=== PATIENT | female | born 1980 | race Caucasian/White ===

== ENCOUNTER 2017-01-27 13:35 | Emergency (ER) | payer MEDICARE, MEDICAID ==
[~2017-01-27] VITALS: Ht 149.9 cm; Wt 64.4 kg
--- OUTSIDE RECORDS SUMMARY | 2017-01-27 13:42 | XMS REPORT | Referral Summary ---
Author Author [facility] Organization [facility] Address Unknown Phone Unavailable Care Team Providers Care Aquaculturist Name Role Phone PROVIDER, NOTINSYSTEM PCP Unavailable Encounter [facility] [id number] Date(s): 09/06/15 - 09/06/15 [facility] [address] [place], [place] [address] Discharge Diagnosis: H/O myositis Discharge Diagnosis: History of gout Discharge Diagnosis: Rheumatoid arthritis Discharge Diagnosis: Fibromyalgia Discharge Diagnosis: History of scleroderma Discharge Disposition: -Home or Self Care Attending Physician: Milady Phillip MD Admitting Physician: Milady Phillip MD Vital Signs Most recent to 1 oldest [Reference Range]: Temperature Oral 36.5 degC [35.8-37.3 degC] (09/06/15 8:41 AM) Peripheral Pulse 63 bpm Rate [60-100 bpm] (09/06/15 8:41 AM) Respiratory Rate 16 br/min [14-20 br/min] (09/06/15 8:41 AM) Blood Pressure 117/73 mmHg [90-140/60-90 mmHg] (09/06/15 8:41 AM) Problem List Condition Effective Dates Status Health Status Informant Anxiety(Confirmed) Active Asthma(Confirmed) Active Fibromyalgia(Confirm Active ed) History of Active scleroderma(Confirme d) History of Active rheumatoid arthritis(Confirmed) Migraine(Confirmed) Active Rheumatoid Active arthritis(Confirmed) Spinal Active stenosis(Confirmed) Lupus(Confirmed) Active Allergies, Adverse Reactions, Alerts Substance Reaction Severity Status penicillin Active Phenergan Active sulfa drugs Active Medications albuterol 90 mcg/inh inhalation powder puffs, Inhalation, q4hr, 0 Refill(s) Start Date: 09/06/15 Status: Ordered hydrOXYzine hydrochloride 25 mg oral tablet 25 mg 1 tabs, Oral, Daily, # 30 tabs, 0 Refill(s) Start Date: 09/06/15 Status: Ordered PROzac 20 mg oral capsule 20 mg 1 caps, Oral, Daily, # 30 caps, 0 Refill(s) Start Date: 09/06/15 Status: Ordered SUMAtriptan Once, 0 Refill(s) Start Date: 09/06/15 Status: Ordered traMADol 50 mg oral tablet 50 mg 1 tabs, Oral, Daily, MAY TAKE UP TO 4/DAY, 0 Refill(s) Start Date: 09/06/15 Status: Ordered Results No data available for this section Immunizations No data available for this section Procedures Procedure Date Related Diagnosis Body Site Carpal tunnel1 Cholecystectomy2 Hernia repair3 Tonsillectomy4 Tubal ligation5 [id number] [id number] Social History Social History Type Response Smoking Status Former smoker; Type: Cigarettes; Tobacco use per day: More than 1 pack; Number of years: 20 Assessment and Plan Extracted from: Title: Office Visit Note Author: Milady Phillip MD Date: 09/06/15 Assessment/Plan 1.History of scleroderma, H/O myositis, History of gout Ordered: Office Visit Level 5 New 82346 2.Rheumatoid arthritis Ordered: Office Visit Level 5 New 09928 5.Fibromyalgia Ordered: Office Visit Level 5 New 22912
[2017-01-27] MEDS ORDERED: DEXAMETHASONE 10 MG/ML (DECADRON) 1 ML VIAL ONE (14:09)
[2017-01-27] MEDS ORDERED: FEXO1TAB40 PO (14:10)
[2017-01-27] MEDS ORDERED: CEFD300C3 PO (14:10)
--- NOTE | 2017-01-27 14:10 | ED EENT ---
History of Present Illness General Chief Complaint: Cough/Cold/Flu Symptoms Stated Complaint: COUGH/CONGESTION/FEVER/BODY ACHE/COLD Nursing Triage Note: c/o cough since last night Source: patient Exam Limitations: no limitations History of Present Illness Time seen by provider: 14:07 Initial Comments To ER with reports of a productive cough since last night associated with nasal congestion, purulent nasal discharge from the right nostril. Chills without fever. Sore throat. Timing/Duration: gradual Severity: moderate Location: nose Associated Symptoms: cough, sinus infection, sore throat Allergies and Home Medications Allergies Coded Allergies: Penicillins (Verified Allergy, Unknown, 01/27/17) Sulfa (Sulfonamide Antibiotics) (Verified Allergy, Unknown, 01/27/17) Review of Systems Constitutional: see HPI Eyes: No Symptoms Reported Ears: See HPI, Pain Nose: see HPI, pain Mouth: no symptoms reported Throat: no symptoms reported Respiratory: no symptoms reported Cardiovascular: no symptoms reported Musculoskeletal: no symptoms reported Skin: no symptoms reported Neurological: No Symptoms Reported Hematologic/Lymphatic: No Symptoms Reported Immunological/Allergic: no symptoms reported Past Tkqcqoo-Hnvxnv-Ybpthr Hx Patient Social History Alcohol Use: Occasionally Uses Recreational Drug Use: No Smoking Status: Current Everyday Smoker Type Used: Cigarettes Recent Foreign Travel: No Contact w/Someone Who Travel: No Recent Infectious Disease Expo: No Surgeries History of Surgeries: Yes (hernia, dental, esophagial, port, d&c) Surgeries: Adenoidectomy, Ear Surgery, Gallbladder, Tonsillectomy Respiratory Respiratory Disorders: Asthma Cardiovascular History of Cardiac Disorders: Yes Cardiac Disorders: Heart Murmur Neurological History of Neurological Disord: No Genitourinary History of Genitourinary Disor: No Gastrointestinal History of Gastrointestinal Di: No Musculoskeletal History of Musculoskeletal Dis: Yes Musculoskeletal Disorders: Rheumatoid Arthritis Endocrine History of Endocrine Disorders: No HEENT History of HEENT Disorders: No Cancer History of Cancer: No Psychosocial History of Psychiatric Problem: No Integumentary History of Skin or Integumenta: No Blood Transfusions History of Blood Disorders: No Physical Exam Vital Signs Vital Sign - Last 12Hours 01/27/17 13:53 Temp 98.5 Pulse 80 Resp 18 B/P (MAP) 145/89 Pulse Ox 100 General Appearance: WD/WN, no apparent distress Eyes: bilateral eye normal inspection, bilateral eye PERRL, bilateral eye EOMI Ears: bilateral ear auricle normal, bilateral ear canal normal, bilateral ear TM normal Mouth/Throat: normal mouth inspection, pharynx normal, other (bilateral maxillary sinus tenderness to palpation right greater than left) Neck: non-tender, full range of motion Respiratory: no respiratory distress, no accessory muscle use Gastrointestinal: normal bowel sounds, non tender, soft Neurologic/Psychiatric: alert, normal mood/affect, oriented x 3 Skin: normal color, warm/dry Progress/Results/Core Measures Results/Orders My Orders Orders - LALO COOPER APRN Dexamethasone Pf Injection (Decadron Pf (01/27/17 14:15) Vital Signs/I&O Vital Sign - Last 12Hours 01/27/17 13:53 Temp 98.5 Pulse 80 Resp 18 B/P (MAP) 145/89 Pulse Ox 100 Blood Pressure Mean: 107 Departure Impression Impression: Primary Impression: Sinusitis Disposition: 01 HOME, SELF-CARE Condition: Stable Departure-Patient Inst. Decision time for Depature: 14:09 Referrals: NO,LOCAL PHYSICIAN (PCP/Family) Primary Care Physician Patient Instructions: Sinusitis, Adult (DC) Add. Discharge Instructions: 1. Medication as directed 2. Return to ER for any concerns 3. See her doctor later this week for recheck All discharge instructions reviewed with patient and/or family. Voiced understanding. Scripts Fexofenadine/Pseudoephedrine (Viri-D 12 Hour Tablet) 1 Each Tab.er.12h 1 EACH PO BID Y for CONGESTION, #14 TAB Prov: LALO COOPER APRN 01/27/17 Cefdinir (Cefdinir) 300 Mg Capsule 300 MG PO BID, #14 CAP Prov: LALO COOPER APRN 01/27/17 LALO COOPER APRN Jan 27, 2017 14:10
[2017-01-27] MEDS ORDERED: DEXAMETHASONE PF 10 MG/ML (DECADRON) VIAL IM ONE (14:15)
[2017-01-27 14:18] VITALS: BP 145/89
== END 2017-01-27 14:18 | disposition home or self-care (01) ==
LOC: ER 13:39
DX: J32.9 Chronic sinusitis, unspecified (principal); J45.909 Unspecified asthma, uncomplicated; M06.9 Rheumatoid arthritis, unspecified; F17.210 Nicotine dependence, cigarettes, uncomplicated; Z87.19 Personal history of other diseases of the digestive system; Z90.89 Acquired absence of other organs
CPT/HCPCS: 96372; 99284

== ENCOUNTER 2017-03-14 14:54 | Emergency (ER) | payer OTHER, MEDICARE, MEDICAID ==
[~2017-03-14] VITALS: Ht 149.9 cm; Wt 63.5 kg
[~2017-03-14 14:54] MED LIST: CEFD300C3 PO; FEXO1TAB40 PO
--- OUTSIDE RECORDS SUMMARY | 2017-03-14 14:59 | XMS REPORT ---
Author Author ROLAND AN Organization [facility] Address [address] [address] Care Team Providers Care Internet Project Manager Name Role Phone ROLAND AN Unavailable PROBLEMS Type Condition ICD9-CM Code SSP36-JK Code Onset Dates Condition Status SNOMED Code Problem examination or test, unconfirmed V72.40 Active 262123866 Problem Hypothyroidism, unspecified type E03.9 Active 07201937 Problem Barretts esophagus without dysplasia K22.70 Active 323840451 Problem Chronic GERD K21.9 Active 705678224 Problem Cardiac arrhythmia, unspecified cardiac arrhythmia type I49.9 Active 783026105 Problem Anxiety about health F41.8 Active 445380870 Problem Intractable migraine without status migrainosus, unspecified migraine type G43.919 Active 182896933 Problem Anxiety F41.9 Active 59045637 Problem History of autoimmune disease Z86.2 Active 052578476 ALLERGIES Substance Reaction Event Type Date Status Latex itching Drug Allergy Jun, Active Sulfur nausea Drug Allergy Jun, Active Phenergan anaphylaxis Drug Allergy Jun, Active Penicillin V Potassium itching Drug Allergy Jun, Active SOCIAL HISTORY Never Assessed PLAN OF CARE Activity Details Follow Up prn Reason: VITAL SIGNS Height 64 in 2016-07-03 Weight 159.4 lbs 2016-07-03 Temperature 99.7 degrees Fahrenheit 2016-07-03 Respiratory Rate 16 2016-07-03 BMI 27.36 kg/m2 2016-07-03 Blood pressure systolic 120 mmHg 2016-07-03 Blood pressure diastolic 82 mmHg 2016-07-03 MEDICATIONS Medication Instructions Dosage Frequency Start Date End Date Duration Status Omeprazole 40 mg Orally Once a day 1 capsule 24h May, 30 day(s ) Active Cipro 500 MG Orally Twice a day 1 tablet 12h Jun, Jun, 07 days Active Levothyroxine Sodium 25 MCG Orally Once a day 1 tablet on an empty stomach in the morning 24h Active Tramadol HCl 50 MG Orally every 6 hrs 1 tablet as needed 6h Active RESULTS No Results PROCEDURES Procedure Date Ordered Result Body Site [facility] VISIT NEW PATIENT Jul 03, 2016 IMMUNIZATIONS No Known Immunizations MEDICAL (GENERAL) HISTORY Type Description Date Medical History polymyositis Medical History sclerdermal Medical History arthritis Medical History fibromylagia Medical History gerd Medical History mytrovalve prolapse Medical History heart murmar Medical History parcurtius Medical History anxiety Surgical History tonsils Surgical History tubes in ears Surgical History [place] cath Surgical History hernia repair Surgical History EGD Surgical History uterine ablation Surgical History dilatation and curettage Hospitalization History pancreatitis Hospitalization History parcartitis Hospitalization History kidney stones Hospitalization History Chest pains 08/2016 Hospitalization History Chest pain 11/2016
--- OUTSIDE RECORDS SUMMARY | 2017-03-14 14:59 | XMS REPORT ---
Author Author MARITZA AN Organization [facility] Address [address] [address] Care Team Providers Care Wall Taper Helper Name Role Phone ANMARITZA Unavailable PROBLEMS Type Condition ICD9-CM Code [id number] Code Onset Dates Condition Status SNOMED Code Problem examination or test, unconfirmed V72.40 Active 048350568 Problem Hypothyroidism, unspecified type E03.9 Active 16073899 Problem Barretts esophagus without dysplasia K22.70 Active 677310031 Problem Chronic GERD K21.9 Active 785629212 Problem Cardiac arrhythmia, unspecified cardiac arrhythmia type I49.9 Active 279451678 Problem Anxiety about health F41.8 Active 480093936 Problem Intractable migraine without status migrainosus, unspecified migraine type G43.919 Active 704231453 Problem Anxiety F41.9 Active 87572088 Problem History of autoimmune disease Z86.2 Active 038258047 ALLERGIES Substance Reaction Event Type Date Status Latex itching Drug Allergy Jun, Active Sulfur nausea Drug Allergy Jun, Active Phenergan anaphylaxis Drug Allergy Jun, Active Penicillin V Potassium itching Drug Allergy Jun, Active SOCIAL HISTORY Never Assessed PLAN OF CARE Activity Details Follow Up prn Reason: VITAL SIGNS Height 64 in 2016-07-22 Weight 160.8 lbs 2016-07-22 Temperature 98.6 degrees Fahrenheit 2016-07-22 Heart Rate 62 bpm 2016-07-22 Respiratory Rate 16 2016-07-22 BMI 27.60 kg/m2 2016-07-22 Blood pressure systolic 122 mmHg 2016-07-22 Blood pressure diastolic 84 mmHg 2016-07-22 MEDICATIONS Medication Instructions Dosage Frequency Start Date End Date Duration Status Tramadol HCl 50 mg Orally every 8 hours, PRN 1 tablet as needed Jul 30 days Active Levothyroxine Sodium 25 MCG Orally Once a day 1 tablet on an empty stomach in the morning 24h 90 days Active RESULTS Name Result Date Reference Range Xray : Spine, Lumbar 2-3 views (IN HOUSE) 2016-07-22 PROCEDURES Procedure Date Ordered Result Body Site X-RAY EXAM OF LOWER SPINE Jul 22, 2016 [facility] VISIT ESTABLISHED PATIENT Jul 22, 2016 IMMUNIZATIONS No Known Immunizations MEDICAL (GENERAL) [...]
--- OUTSIDE RECORDS SUMMARY | 2017-03-14 14:59 | XMS REPORT ---
Author Author MARITZA AN Organization [facility] Address [address] [address] Care Team Providers Care Strip Deburrer Name Role Phone MARITZA AN Unavailable PROBLEMS Type Condition ICD9-CM Code ABQ70-BE Code Onset Dates Condition Status SNOMED Code Problem examination or test, unconfirmed V72.40 Active 649262086 Problem Anxiety F41.9 Active 90144767 Problem History of autoimmune disease Z86.2 Active 590299974 Problem Hypothyroidism, unspecified type E03.9 Active 00505458 Problem Barretts esophagus without dysplasia K22.70 Active 888332277 Problem Anxiety about health F41.8 Active 763259485 Problem Intractable migraine without status migrainosus, unspecified migraine type G43.919 Active 536096638 ALLERGIES Substance Reaction Event Type Date Status Latex itching Drug Allergy May, Active Sulfur nausea Drug Allergy May, Active Phenergan anaphylaxis Drug Allergy May, Active Penicillin V Potassium itching Drug Allergy May, Active SOCIAL HISTORY No smoking Hx information available PLAN OF CARE Activity Details Follow Up prn Reason: VITAL SIGNS Height 64 in 2016-06-24 Weight 160.8 lbs 2016-06-24 Temperature 99.8 degrees Fahrenheit 2016-06-24 Heart Rate 78 bpm 2016-06-24 Respiratory Rate 18 2016-06-24 BMI 27.60 kg/m2 2016-06-24 Blood pressure systolic 118 mmHg 2016-06-24 Blood pressure diastolic 70 mmHg 2016-06-24 MEDICATIONS Medication Instructions Dosage Frequency Start Date End Date Duration Status Levothyroxine Sodium 25 MCG Orally Once a day 1 tablet on an empty stomach in the morning 24h Active Omeprazole 40 mg Orally Once a day 1 capsule 24h May, 30 day(s ) Active RESULTS No Results PROCEDURES Procedure Date Ordered Related Diagnosis Body Site TRIGGER POINT INJ/1-2 MUS 2016-06-24 N/A [facility] VISIT ESTABLISHED PATIENT Jun 24, 2016 INJECT TRIGGER POINT, 1 OR 2 Jun 24, 2016 Office Visit, Est Pt., Level 4 Jun 24, 2016 IMMUNIZATIONS No Known Immunizations
--- OUTSIDE RECORDS SUMMARY | 2017-03-14 14:59 | XMS REPORT ---
Author Author MARITZA AN Organization [facility] Address [address] [place] [address] Care Team Providers Care Fax Machine Repairer Name Role Phone MARITZA AN Unavailable PROBLEMS Type Condition ICD9-CM Code WDL65-OW Code Onset Dates Condition Status SNOMED Code Problem examination or test, unconfirmed V72.40 Active 744605717 Problem Anxiety F41.9 Active 40404028 Problem History of autoimmune disease Z86.2 Active 984228811 Problem Hypothyroidism, unspecified type E03.9 Active 49304638 Problem Barretts esophagus without dysplasia K22.70 Active 024012664 Problem Anxiety about health F41.8 Active 164131160 Problem Intractable migraine without status migrainosus, unspecified migraine type G43.919 Active 017886843 ALLERGIES Substance Reaction Event Type Date Status Latex itching Drug Allergy May, Active Sulfur nausea Drug Allergy May, Active Phenergan anaphylaxis Drug Allergy May, Active Penicillin V Potassium itching Drug Allergy May, Active SOCIAL HISTORY No smoking Hx information available PLAN OF CARE Activity Details Follow Up 4 Weeks Reason: VITAL SIGNS Weight 159.4 lbs 2016-06-17 Temperature 99.3 degrees Fahrenheit 2016-06-17 Heart Rate 66 bpm 2016-06-17 Respiratory Rate 18 2016-06-17 Blood pressure systolic 142 mmHg 2016-06-17 Blood pressure diastolic 88 mmHg 2016-06-17 MEDICATIONS Medication Instructions Dosage Frequency Start Date End Date Duration Status Levothyroxine Sodium 25 MCG Orally Once a day 1 tablet on an empty stomach in the morning 24h Active Omeprazole 40 mg Orally Once a day 1 capsule 24h May, 30 day(s ) Active Xanax 1 MG Orally Twice a day 1 tablet 12h Active RESULTS No Results PROCEDURES Procedure Date Ordered Related Diagnosis Body Site [facility] VISIT ESTABLISHED PATIENT Jun 17, 2016 Office Visit, Est Pt., Level 3 Jun 17, 2016 IMMUNIZATIONS No Known Immunizations
--- OUTSIDE RECORDS SUMMARY | 2017-03-14 14:59 | XMS REPORT | Continuity of Care Document ---
Demographics Preferred Language Unknown Marital Status Unknown Adventist Affiliation Unknown Race Unknown Ethnic Group Unknown Author Author [facility] Address Unknown Phone Unavailable Allergies Medications Problems Date Dx Coded Attending Type Code Diagnosis Diagnosed By 08/30/2012 V72.40 EXAMINATION OR TEST UNCONFIRMED Procedures Code [place] [address] URINE TEST (IN-HOUSE) 08/30/2012 Results Encounters ACCT No. Visit Date/Time Discharge Status Pt. Type Provider Facility Loc./Unit Complaint [id number] 08/30/2012 08:45:00 Document Registration
--- OUTSIDE RECORDS SUMMARY | 2017-03-14 14:59 | XMS REPORT ---
Author Author MARITZA AN Organization [facility] Address [address] [address] Care Team Providers Care Primary Therapist Name Role Phone MARITZA AN Unavailable PROBLEMS Type Condition ICD9-CM Code PVX59-VF Code Onset Dates Condition Status SNOMED Code Problem examination or test, unconfirmed V72.40 Active 826300150 Problem Hypothyroidism, unspecified type E03.9 Active 28131177 Problem Barretts esophagus without dysplasia K22.70 Active 702129070 Problem Chronic GERD K21.9 Active 700792768 Problem Cardiac arrhythmia, unspecified cardiac arrhythmia type I49.9 Active 298277700 Problem Anxiety about health F41.8 Active 035607607 Problem Intractable migraine without status migrainosus, unspecified migraine type G43.919 Active 780406392 Problem Anxiety F41.9 Active 92568709 Problem History of autoimmune disease Z86.2 Active 785211999 ALLERGIES Substance Reaction Event Type Date Status Latex itching Drug Allergy Jul, Active Sulfur nausea Drug Allergy Jul, Active Phenergan anaphylaxis Drug Allergy Jul, Active Penicillin V Potassium itching Drug Allergy Jul, Active SOCIAL HISTORY Never Assessed PLAN OF CARE Activity Details Follow Up prn Reason: VITAL SIGNS Height 64 in 2016-07-28 Weight 163.4 lbs 2016-07-28 Temperature 99.4 degrees Fahrenheit 2016-07-28 Heart Rate 76 bpm 2016-07-28 Respiratory Rate 16 2016-07-28 BMI 28.04 kg/m2 2016-07-28 Blood pressure systolic 112 mmHg 2016-07-28 Blood pressure diastolic 76 mmHg 2016-07-28 MEDICATIONS Medication Instructions Dosage Frequency Start Date End Date Duration Status Tramadol HCl 50 mg Orally every 8 hours, PRN 1 tablet as needed Jul 30 days Active Levothyroxine Sodium 25 MCG Orally Once a day 1 tablet on an empty stomach in the morning 24h 90 days Active RESULTS No Results PROCEDURES Procedure Date Ordered Result Body Site [facility] VISIT ESTABLISHED PATIENT July 28, 2016 IMMUNIZATIONS No Known Immunizations MEDICAL (GENERAL) [...]
--- OUTSIDE RECORDS SUMMARY | 2017-03-14 14:59 | XMS REPORT ---
Author Author MARITZA AN [facility] Address [address] [address] Care Team Providers Care Field Care Manager Name Role Phone MARITZA AN Unavailable PROBLEMS Type Condition ICD9-CM Code FQC09-KN Code Onset Dates Condition Status SNOMED Code Problem examination or test, unconfirmed V72.40 Active 430119493 Problem Hypothyroidism, unspecified type E03.9 Active 52828379 Problem Barretts esophagus without dysplasia K22.70 Active 824663599 Problem Chronic GERD K21.9 Active 248850193 Problem Cardiac arrhythmia, unspecified cardiac arrhythmia type I49.9 Active 023907932 Problem Anxiety about health F41.8 Active 292318910 Problem Intractable migraine without status migrainosus, unspecified migraine type G43.919 Active 260310760 Problem Anxiety F41.9 Active 34385628 Problem History of autoimmune disease Z86.2 Active 307359199 ALLERGIES Substance Reaction Event Type Date Status Latex itching Drug Allergy Jun, Active Sulfur nausea Drug Allergy Jun, Active Phenergan anaphylaxis Drug Allergy Jun, Active Penicillin V Potassium itching Drug Allergy Jun, Active SOCIAL HISTORY Never Assessed PLAN OF CARE Activity Details Follow Up 3 Months Reason: VITAL SIGNS Height 64 in 2016-07-18 Weight 216.71 lbs 2016-07-18 Temperature 98.3 degrees Fahrenheit 2016-07-18 Heart Rate 78 bpm 2016-07-18 Respiratory Rate 16 2016-07-18 BMI 37.19 kg/m2 2016-07-18 Blood pressure systolic 122 mmHg 2016-07-18 Blood pressure diastolic 74 mmHg 2016-07-18 MEDICATIONS Medication Instructions Dosage Frequency Start Date End Date Duration Status Omeprazole 40 mg Orally Once a day 1 capsule 24h May, 30 day(s ) Active Tramadol HCl 50 mg Orally every 8 hours, PRN 1 tablet as needed Jul 30 days Active Levothyroxine Sodium 25 MCG Orally Once a day 1 tablet on an empty stomach in the morning 24h 90 days Active RESULTS No Results PROCEDURES Procedure Date Ordered Result Body Site [facility]Q VISIT ESTABLISHED PATIENT Jul 18, 2016 IMMUNIZATIONS No Known Immunizations MEDICAL (GENERAL) [...]
--- NOTE | 2017-03-14 15:04 | ED Hip Pain/Injury ---
General Chief Complaint: Hip/Pelvic Problems Stated Complaint: L HIP NUMBNESS Source: patient Exam Limitations: no limitations History of Present Illness Time seen by provider: 15:02 Initial Comments To ER per EMS with reports of left leg pain and numbness after a nery June client fell out of a xfq-[id number] lift landing on her left leg. She states that she is starting to get some sensation back in her foot was initially completely numb. She was unable to stand since this happened. Timing/Duration: just prior to arrival Severity: moderate Location: pelvis Associated Symptoms: denies symptoms Allergies and Home Medications Allergies Coded Allergies: Penicillins (Verified Allergy, Unknown, 01/27/17) Sulfa (Sulfonamide Antibiotics) (Verified Allergy, Unknown, 01/27/17) Home Medications Clonazepam 1 Mg Tablet, (Reported) Diltiazem HCl 30 Mg Tablet, (Reported) Montelukast Sodium 10 Mg Tablet, (Reported) Sumatriptan Succinate 100 Mg Tablet, (Reported) Constitutional: see HPI EENTM: see HPI Respiratory: no symptoms reported Cardiovascular: no symptoms reported Genitourinary: no symptoms reported Musculoskeletal: see HPI Skin: no symptoms reported Psychiatric/Neurological: No Symptoms Reported Past Kigoqql-Fqrxxa-Nedhka Hx Patient Social History Type Used: Cigarettes Surgeries History of Surgeries: Yes (hernia, dental, esophagial, port, d&c) Surgeries: Adenoidectomy, Ear Surgery, Gallbladder, Tonsillectomy Respiratory Respiratory Disorders: Asthma Cardiovascular History of Cardiac Disorders: Yes Cardiac Disorders: Heart Murmur Neurological History of Neurological Disord: No Genitourinary History of Genitourinary Disor: No Gastrointestinal History of Gastrointestinal Di: No Musculoskeletal History of Musculoskeletal Dis: Yes Musculoskeletal Disorders: Rheumatoid Arthritis Endocrine History of Endocrine Disorders: No HEENT History of HEENT Disorders: No Cancer History of Cancer: No Psychosocial History of Psychiatric Problem: No Integumentary History of Skin or Integumenta: No Blood Transfusions History of Blood Disorders: No Physical Exam Vital Signs Vital Sign - Last 12Hours 03/14/17 14:55 Temp 98.1 Pulse 60 Resp 18 B/P (MAP) 99/85 Pulse Ox 100 Capillary Refill : General Appearance: No Apparent Distress, WD/WN HEENT: PERRL/EOMI, TMs Normal Neck: Full Range of Motion, Normal Inspection Respiratory: No Accessory Muscle Use, No Respiratory Distress Gastrointestinal: Normal Bowel Sounds, Non Tender, Soft Extremity: Normal Capillary Refill, Normal Inspection, Other (there is no deformity, erythema, abrasion, ecchymosis or any other objective sign of injury at this time.) Neurologic/Psychiatric: Alert, Oriented x3 Skin: Normal Color, Warm/Dry Progress/Results/Core Measures Results/Orders My Orders Orders - LALO COOPER APRN Femur, Left, 2 Views (03/14/17 14:57) Tibia/Fibula, Left, 2 Views (03/14/17 14:57) Vital Signs/I&O Vital Sign - Last 12Hours 03/14/17 14:55 Temp 98.1 Pulse 60 Resp 18 B/P (MAP) 99/85 Pulse Ox 100 Departure Impression Impression: Primary Impression: Contusion of leg Disposition: 01 HOME, SELF-CARE Condition: Stable Departure-Patient Inst. Decision time for Depature: 15:46 Referrals: NO,LOCAL PHYSICIAN (PCP/Family) Primary Care Physician Patient Instructions: Contusion (DC) Add. Discharge Instructions: 1. Tylenol and Motrin for any pain. Return to ER for any concerns All discharge instructions reviewed with patient and/or family. Voiced understanding. LALO COOPER APRN Mar 14, 2017 15:04
[2017-03-14] MEDS ORDERED: MONT10TA24 (15:09)
[2017-03-14] MEDS ORDERED: CLON1TAB3 (15:09)
[2017-03-14] MEDS ORDERED: SUMA100T3 (15:09)
[2017-03-14] MEDS ORDERED: DILT30TA (15:09)
--- NOTE | 2017-03-14 15:40 | Diagnostic Imaging Report ---
INDICATION: Injury, leg pain. EXAMINATION: Left femur. PA and lateral views were obtained. FINDINGS: There is no fracture, dislocation or acute bony abnormality evident. The hip and sacroiliac joints are fairly well maintained. There are calcifications in the soft tissues of each buttock. These are of uncertain etiology but could be related to either prior trauma or less likely to injection granulomas.There are also a few soft tissue calcifications anterior to the patella. These may be a sequela of prior trauma. IMPRESSION: There is no evidence for an acute bony abnormality. Dictated by: Dictated on workstation # [id number]
--- NOTE | 2017-03-14 15:50 | Diagnostic Imaging Report ---
Left tibia and fibula. INDICATION: Injury, pain. AP and lateral views were obtained. FINDINGS: There is no fracture, dislocation or acute bony abnormality evident. The knee and ankle joints are fairly well-maintained. The soft tissues are unremarkable. As noted on the left femur exam performed in conjunction with this study, soft tissue calcifications are again seen along the anterior aspect of patella. IMPRESSION: There is no evidence for an acute bony abnormality. Dictated by: Dictated on workstation # [id number]
[2017-03-14 16:11] VITALS: BP 99/85
== END 2017-03-14 16:11 | disposition home or self-care (01) ==
LOC: EDUNIT# 14:54 → ER 14:55
DX: S80.12XA Contusion of left lower leg, initial encounter (principal); M06.9 Rheumatoid arthritis, unspecified; J45.909 Unspecified asthma, uncomplicated; Z90.89 Acquired absence of other organs; W17.89XA Other fall from one level to another, initial encounter
CPT/HCPCS: 73552; 73590; 99283

== ENCOUNTER 2017-03-19 16:37 | Emergency (ER) | payer MEDICARE, MEDICAID ==
[~2017-03-19] VITALS: Ht 149.9 cm; Wt 55.3 kg
[~2017-03-19 16:37] MED LIST changes: +CLON1TAB3; +DILT30TA; +MONT10TA24; +SUMA100T3
--- OUTSIDE RECORDS SUMMARY | 2017-03-19 16:43 | XMS REPORT | Continuity of Care Document ---
Demographics Preferred Language Unknown Marital Status Unknown Orthodoxy Affiliation Unknown Race Unknown Ethnic Group Unknown Author Author [facility] Address Unknown Phone Unavailable Allergies Medications Problems Date Dx Coded Attending Type Code Diagnosis Diagnosed By 08/30/2012 V72.40 EXAMINATION OR TEST UNCONFIRMED Procedures Code [place] [address] URINE TEST (IN-HOUSE) 08/30/2012 Results Encounters ACCT No. Visit Date/Time Discharge Status Pt. Type Provider Facility Loc./Unit Complaint [id number] 08/30/2012 08:45:00 Document Registration
[2017-03-19] MEDS ORDERED: LORazepam 1 MG (ATIVAN) TAB PO ONE (17:00)
--- NOTE | 2017-03-19 17:06 | ED Chest Pain ---
General Chief Complaint: Chest Pain Stated Complaint: CHEST PAIN;SOA Source: patient Exam Limitations: no limitations (KARI JACOME MD) History of Present Illness Time seen by provider: 17:03 Initial Comments This 36-year-old white female presents with a complaint of chest pain that has been present for the last 24 hours with associated shortness of breath. The patient states the chest pain is sharp in nature, made worse with movement, and is similar to her previous episodes of pericarditis. 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 The patient had dizziness preceding her chest pain over the past few days. Patient relates that her pericarditis and required hospitalization and treatment with IV medication, names unknown to the patient. (KARI JACOME MD) Allergies and Home Medications Allergies Coded Allergies: Penicillins (Verified Allergy, Unknown, 01/27/17) Sulfa (Sulfonamide Antibiotics) (Verified Allergy, Unknown, 01/27/17) Home Medications Clonazepam 1 Mg Tablet, (Reported) Cyclobenzaprine HCl 10 Mg Tablet, 10 MG PO Q8H, #12 Ref 0 Prescribed by: YULIYA DENTON on 03/19/171920 Diltiazem HCl 30 Mg Tablet, (Reported) Montelukast Sodium 10 Mg Tablet, (Reported) Sumatriptan Succinate 100 Mg Tablet, (Reported) Review of Systems Constitutional: No chills, No fever EENTM: No Blurred Vision Respiratory: Denies Cough, Shortness of Air Cardiovascular: Chest Pain, Denies Palpitations, Denies Syncope Gastrointestinal: Denies Abdominal Pain, Denies Diarrhea, Denies Nausea, Denies Vomiting Genitourinary: Denies Burning Musculoskeletal: No back pain, No joint pain Skin: No change in color Psychiatric/Neurological: Other Endocrine: Denies No Symptoms Reported (dizziness) Hematologic/Lymphatic: Denies No Symptoms Reported (KARI JACOME MD) Past Ibdnonk-Njehlm-Otaukw Hx Patient Social History Alcohol Use: Denies Use Recreational Drug Use: No Type Used: Electronic/Vapor Recent Foreign Travel: No Contact w/Someone Who Travel: No Recent Hopitalizations: No Physical Abuse: No Sexual Abuse: No (KARI JACOME MD) Surgeries History of Surgeries: Yes (hernia, dental, esophagial, port, d&c) Surgeries: Adenoidectomy, Ear Surgery, Gallbladder, Tonsillectomy (KARI JACOME MD) Respiratory Respiratory Disorders: Asthma (KARI JACOME MD) Cardiovascular History of Cardiac Disorders: Yes Cardiac Disorders: Heart Murmur (KARI JACOME MD) Neurological History of Neurological Disord: No (KARI JACOME MD) Genitourinary History of Genitourinary Disor: No (KARI JACOME MD) Gastrointestinal History of Gastrointestinal Di: No (KARI AJCOME MD) Musculoskeletal History of Musculoskeletal Dis: Yes Musculoskeletal Disorders: Rheumatoid Arthritis (KARI JACOME MD) Endocrine History of Endocrine Disorders: No (KARI JACOME MD) HEENT History of HEENT Disorders: No (KARI JACOME MD) Cancer History of Cancer: No (KARI JACOME MD) Psychosocial History of Psychiatric Problem: No Suicide Risk Score: 0 (KARI JACOME MD) Integumentary History of Skin or Integumenta: No (KARI JACOME MD) Blood Transfusions History of Blood Disorders: No (KARI JACOME MD) Reviewed Nursing Assessment Reviewed/Agree w Nursing PMH: Yes (KARI JACOME MD) Physical Exam Vital Signs Vital Sign - Last 12Hours 03/19/17 16:40 Temp 97.8 Pulse 64 Resp 18 B/P (MAP) 128/76 Pulse Ox 100 (YULIYA DENTON) Vital Signs Capillary Refill : Less Than 3 Seconds (KARI JACOME MD) General Appearance: No Apparent Distress, Anxious HEENT: Normal ENT Inspection Neck: Normal Inspection Respiratory: Lungs Clear Cardiovascular: Regular Rate, Rhythm Gastrointestinal: Normal Bowel Sounds Rectal: Normal Exam Extremity: Normal Capillary Refill, Normal Inspection, Normal Range of Motion Neurologic/Psychiatric: Oriented x3, No Motor/Sensory Deficits, Normal Mood/ Affect Skin: Normal Color, Warm/Dry (KARI JACOME MD) Progress/Results/Core Measures Results/Orders Lab Results Laboratory Tests Test 03/19/17 16:45 Range/Units White Blood Count 8.6 4.3-11.0 10^3/uL Red Blood Count 4.11 L 4.35-5.85 10^6/uL Hemoglobin 13.0 11.5-16.0 G/DL Hematocrit 36 35-52 % Mean Corpuscular Volume 88 80-99 FL Mean Corpuscular Hemoglobin 32 25-34 PG Mean Corpuscular Hemoglobin Concent 36 32-36 G/DL Red Cell Distribution Width 12.7 10.0-14.5 % Platelet Count 196 130-400 10^3/uL Mean Platelet Volume 10.3 7.4-10.4 FL Neutrophils (%) (Auto) 57 42-75 % Lymphocytes (%) (Auto) 36 12-44 % Monocytes (%) (Auto) 5 0-12 % Eosinophils (%) (Auto) 2 0-10 % Basophils (%) (Auto) 0 0-10 % Neutrophils # (Auto) 4.9 1.8-7.8 X 10^3 Lymphocytes # (Auto) 3.1 1.0-4.0 X 10^3 Monocytes # (Auto) 0.4 0.0-1.0 X 10^3 Eosinophils # (Auto) 0.1 0.0-0.3 10^3/uL Basophils # (Auto) 0.0 0.0-0.1 10^3/uL Erythrocyte Sedimentation Rate 7 0-20 MM/HR Prothrombin Time 12.9 12.2-14.7 SEC INR Comment 1.0 0.8-1.4 Activated Partial Thromboplast Time 28 24-35 SEC Sodium Level 140 135-145 MMOL/L Potassium Level 3.4 L 3.6-5.0 MMOL/L Chloride Level 107 98-107 MMOL/L Carbon Dioxide Level 26 21-32 MMOL/L Anion Gap 7 5-14 MMOL/L Blood Urea Nitrogen 12 7-18 MG/DL Creatinine 0.74 0.60-1.30 MG/DL Estimat Glomerular Filtration Rate > 60 BUN/Creatinine Ratio 16 Glucose Level 104 70-105 MG/DL Calcium Level 9.0 8.5-10.1 MG/DL Magnesium Level 1.8 1.8-2.4 MG/DL Total Bilirubin 0.6 0.1-1.0 MG/DL Aspartate Amino Transf (AST/SGOT) 14 5-34 U/L Alanine Aminotransferase (ALT/SGPT) 13 0-55 U/L Alkaline Phosphatase 58 40-136 U/L Myoglobin 25.1 10.0-92.0 NG/ML Troponin I < 0.30 <0.30 NG/ML Total Protein 6.4 6.4-8.2 GM/DL Albumin 3.8 3.2-4.5 GM/DL (GAVI,YULIYA [employer]) My Orders Orders - YULIYA DENTON Cyclobenzaprine Tablet (Flexeril Tablet) (03/19/17 19:21) (YULIYA DENTON) Medications Given in ED Current Medications Medications Dose Ordered Sig/Michelle Route Start Time Stop Time Status Last Admin Dose Admin Ketorolac Tromethamine 30 mg ONCE ONCE IVP 03/19/17 18:15 03/19/17 18:16 DC 03/19/17 18:13 30 MG Lorazepam 1 mg ONCE ONCE PO 03/19/17 17:00 03/19/17 17:02 DC 03/19/17 17:27 1 MG (YULIYA DENTONP) Vital Signs/I&O Vital Sign - Last 12Hours 03/19/17 03/19/17 16:40 19:32 Temp 97.8 Pulse 64 57 Resp 18 18 B/P (MAP) 128/76 Pulse Ox 100 99 (YULIYA DENTONP) Progress Note : Time: 17:59 Progress Note The patient's EKG demonstrated sinus rhythm with low voltage. Patient's chest x -ray was unremarkable. Patient's CBC demonstrated normal white count and hemoglobin. We are waiting a limited echo of the heart to rule out pericarditis. Patient was anxious and received a milligram of Ativan orally. My partner, Yuliya Denton, was kind enough to accept the patient in transfer at change of shifts and will follow-up on the patient's echo. (KARI JACOME MD) Progress Note : Progress Note [address] Jacome. Continue to monitor patient. 1845 echocardiogram per tach is normal. Will be over read by cardiology tomorrow , will notify patient if any abnormalities noted. 0 evaluation of patient she continues to complain of left-sided chest pain, on exam it is tender to palpate in the lateral upper intercostal spaces and into the axilla. There is no axillary adenopathy noted. No skin changes appreciated. The pain seems to be worse with deep breaths and coughing. Stressed the findings and the fact that the pain is palpable, it is very unlikely to be of cardiac nature. Flexeril 10 mg by mouth. Discussed the diagnosis of costochondritis, the patient immediately asked if this will require her to be off of work for any extended period of time. She is already on restrictions at work due to a lower extremity injury. She is using crutches for ambulation. She states that the crutches do not increase her left-sided chest wall pain. Discharge planning discussed with the patient. (YULIYA DENTON) Departure Impression Impression: Primary Impression: Costochondritis, acute Disposition: 01 HOME, SELF-CARE Condition: Stable Departure-Patient Inst. Decision time for Depature: 19:00 (YULIYA DENTON) Referrals: NO,LOCAL PHYSICIAN (PCP/Family) Primary Care Physician Patient Instructions: Costochondritis (DC) Add. Discharge Instructions: Warm moist compresses to left chest wall every 2 hours while awake. Follow-up with urgent care for work comp See primary care provider early next week for results of echocardiogram. Return to emergency department for acute chest pain, new injuries, difficulty breathing, or other concerns. All discharge instructions reviewed with patient and/or family. Voiced understanding. Scripts Cyclobenzaprine HCl (Cyclobenzaprine HCl) 10 Mg Tablet 10 MG PO Q8H, #12 TAB 0 Refills Prov: YULIYA DENTON 03/19/17 KARI JACOME MD Mar 19, 2017 17:06 YULIYA DENTON Mar 19, 2017 19:21
[2017-03-19 17:24] LABS: BASOPHILS % (AUTO) 0 % (0-10); EOSINOPHILS # (AUTO) 0.1 10^3/uL (0.0-0.3); EOSINOPHILS % (AUTO) 2 % (0-10); LYMPHOCYTES # (AUTO) 3.1 X 10^3 (1.0-4.0); LYMPHOCYTES % (AUTO) 36 % (12-44); MEAN CORPUSCULAR HEMOGLOBIN 32 PG (25-34); MEAN CORPUSCULAR HGB CONC 36 G/DL (32-36); MEAN CORPUSCULAR VOLUME 88 FL (80-99); MEAN PLATELET VOLUME 10.3 FL (7.4-10.4); MONOCYTES # (AUTO) 0.4 X 10^3 (0.0-1.0); MONOCYTES % (AUTO) 5 % (0-12); NEUTROPHILS # (AUTO) 4.9 X 10^3 (1.8-7.8); NEUTROPHILS % (AUTO) 57 % (42-75); PLATELET COUNT 196 10^3/uL (130-400); RED BLOOD COUNT 4.11 10^6/uL (4.35-5.85); RED CELL DISTRIBUTION WIDTH 12.7 % (10.0-14.5); WHITE BLOOD COUNT 8.6 10^3/uL (4.3-11.0)
[2017-03-19 17:32] LABS: PROTHROMBIN TIME PATIENT 12.9 SEC (12.2-14.7)
[2017-03-19 17:39] LABS: ALANINE AMINOTRANSFERASE 13 U/L (0-55); ALBUMIN 3.8 GM/DL (3.2-4.5); ANION GAP 7 MMOL/L (5-14); ASPARTATE AMINO TRANSFERASE 14 U/L (5-34); BILIRUBIN,TOTAL 0.6 MG/DL (0.1-1.0); BLOOD UREA NITROGEN 12 MG/DL (7-18); BUN/CREATININE RATIO 16; CARBON DIOXIDE 26 MMOL/L (21-32); CHLORIDE 107 MMOL/L (98-107); CREATININE SERUM 0.74 MG/DL (0.60-1.30); GFR ESTIMATED > 60; GLUCOSE 104 MG/DL (70-105); MAGNESIUM 1.8 MG/DL (1.8-2.4); POTASSIUM 3.4 MMOL/L (3.6-5.0); SODIUM 140 MMOL/L (135-145); TOTAL PROTEIN 6.4 GM/DL (6.4-8.2)
[2017-03-19 17:45] LABS: MYOGLOBIN SERUM 25.1 NG/ML (10.0-92.0)
--- NOTE | 2017-03-19 17:46 | Diagnostic Imaging Report ---
INDICATION: Chest pain. EXAMINATION: Portable erect AP chest at 5:33 p.m. FINDINGS: The heart size is within normal limits and stable when compared to 06/07/09. The perihilar markings are prominent but no different than on the prior exam. The lungs are generally clear. There is no sign of failure, pneumonia or a pleural effusion. The mediastinum is not widened. The osseous structures are intact. The left-sided Port-A-Cath, seen previously, is again evident and no different. IMPRESSION: There is no evidence for active disease. Dictated by: Dictated on workstation # [id number]
[2017-03-19] MEDS ORDERED: KETOROLAC 30 MG/ML VIAL IVP ONE (18:15)
[2017-03-19] MEDS ORDERED: CYCL10TA9 PO (19:21)
[2017-03-19] MEDS ORDERED: CYCLOBENZAPRINE 10 MG (FLEXERIL) TAB PO STA (19:21)
[2017-03-19 19:32] VITALS: BP 131/82
== END 2017-03-19 19:34 | disposition home or self-care (01) ==
LOC: EDUNIT# 16:37 → ER 16:39
DX: M94.0 Chondrocostal junction syndrome [Tietze] (principal); M06.9 Rheumatoid arthritis, unspecified; J45.909 Unspecified asthma, uncomplicated; R01.1 Cardiac murmur, unspecified; M35.9 Systemic involvement of connective tissue, unspecified
CPT/HCPCS: 36415; 71010; 80053; 83735; 83874; 84484; 85025; 85610; 85652; 85730; 93005; 93041; 93306

== ENCOUNTER 2017-03-30 11:14 | Outpatient (RCR) | payer MEDICARE, MEDICAID ==
[~2017-03-30 11:14] MED LIST changes: +CYCL10TA9 PO
== END 2017-06-28 | disposition home or self-care (01) ==
LOC: CARD 11:14
PROVIDERS: ATTEND Family Medicine
DX: R00.2 Palpitations (principal)
CPT/HCPCS: 93225; 93226

== ENCOUNTER 2017-04-26 20:48 | Emergency (ER) | payer MEDICARE, MEDICAID ==
[~2017-04-26] VITALS: Ht 149.9 cm; Wt 55.3 kg
--- OUTSIDE RECORDS SUMMARY | 2017-04-26 20:54 | XMS REPORT ---
Author Author ROLAND AN Organization [facility] Address [address] [place] [address] Care Team Providers Care Wheel Tuner Name Role Phone ROLAND AN Unavailable PROBLEMS Type Condition ICD9-CM Code GEQ67-CA Code Onset Dates Condition Status SNOMED Code Problem examination or test, unconfirmed V72.40 Active 388085866 Problem Hypothyroidism, unspecified type E03.9 Active 71670959 Problem Barretts esophagus without dysplasia K22.70 Active 936304162 Problem Chronic GERD K21.9 Active 620408796 Problem Cardiac arrhythmia, unspecified cardiac arrhythmia type I49.9 Active 088917686 Problem Anxiety about health F41.8 Active 402391872 Problem Intractable migraine without status migrainosus, unspecified migraine type G43.919 Active 788961061 Problem Anxiety F41.9 Active 85441580 Problem History of autoimmune disease Z86.2 Active 913546646 ALLERGIES No Information SOCIAL HISTORY Never Assessed PLAN OF CARE VITAL SIGNS MEDICATIONS Medication Instructions Dosage Frequency Start Date End Date Duration Status Klonopin 1 MG Orally PRN 1 tablet Aug, Active RESULTS No Results PROCEDURES No Known procedures IMMUNIZATIONS No Known Immunizations MEDICAL (GENERAL) HISTORY [...]
--- OUTSIDE RECORDS SUMMARY | 2017-04-26 20:54 | XMS REPORT ---
Author Author ROLAND AN Organization [facility] Address [address] [address] Care Team Providers Care Tractor Operator Helper Name Role Phone ANROLAND Unavailable PROBLEMS Type Condition ICD9-CM Code SEF07-HC Code Onset Dates Condition Status SNOMED Code Problem examination or test, unconfirmed V72.40 Active 163049124 Problem Hypothyroidism, unspecified type E03.9 Active 56056087 Problem Barretts esophagus without dysplasia K22.70 Active 478179880 Problem Chronic GERD K21.9 Active 036943833 Problem Cardiac arrhythmia, unspecified cardiac arrhythmia type I49.9 Active 289485618 Problem Anxiety about health F41.8 Active 914994699 Problem Intractable migraine without status migrainosus, unspecified migraine type G43.919 Active 265553946 Problem Anxiety F41.9 Active 88371890 Problem History of autoimmune disease Z86.2 Active 368402921 ALLERGIES Substance Reaction Event Type Date Status Latex itching Drug Allergy September, Active Sulfur nausea Drug Allergy September, Active Phenergan anaphylaxis Drug Allergy September, Active Penicillin V Potassium itching Drug Allergy September, Active SOCIAL HISTORY Never Assessed PLAN OF CARE Activity Details Follow Up 2 Months Reason: VITAL SIGNS Height 64 in 2016-10-02 Weight 157.6 lbs 2016-10-02 Temperature 97.9 degrees Fahrenheit 2016-10-02 Heart Rate 76 bpm 2016-10-02 Respiratory Rate 16 2016-10-02 BMI 27.05 kg/m2 2016-10-02 Blood pressure systolic 122 mmHg 2016-10-02 Blood pressure diastolic 76 mmHg 2016-10-02 MEDICATIONS Medication Instructions Dosage Frequency Start Date End Date Duration Status Diltiazem HCl 30 MG Orally Three times a day 1 tablet before meals and at bedtime 8h Active Omeprazole 40 mg Orally Once a day 1 capsule 24h May, 30 day(s ) Active Xanax 1 MG Orally Twice a day 1 tablet 12h Active Levothyroxine Sodium 100 MCG Orally Once a day 1 tablet on an empty stomach in the morning 24h 30 days Active Klonopin 1 MG Orally PRN 1 tablet Aug, Active RESULTS No Results PROCEDURES Procedure Date Ordered Result Body Site [facility] VISIT ESTABLISHED PATIENT October 02, 2016 IMMUNIZATIONS No Known Immunizations MEDICAL (GENERAL) [...]
[2017-04-26 20:55] VITALS: BP 134/75
--- OUTSIDE RECORDS SUMMARY | 2017-04-26 20:55 | XMS REPORT | Continuity of Care Document ---
Demographics Preferred Language Unknown Marital Status Unknown Yarsanism Affiliation Unknown Race Unknown Ethnic Group Unknown Author Author [facility] Address Unknown Phone Unavailable Allergies Medications Problems Date Dx Coded Attending Type Code Diagnosis Diagnosed By 08/30/2012 V72.40 EXAMINATION OR TEST UNCONFIRMED Procedures Code [place] [address] URINE TEST (IN-HOUSE) 08/30/2012 Results Encounters ACCT No. Visit Date/Time Discharge Status Pt. Type Provider Facility Loc./Unit Complaint [id number] 08/30/2012 08:45:00 Document Registration
--- NOTE | 2017-04-26 20:59 | ED Lower Extremity ---
General Chief Complaint: Lower Extremity Stated Complaint: L FOOT INJ Source: patient Exam Limitations: no limitations History of Present Illness Time seen by provider: 20:57 Initial Comments To ER with c/o left foot injury after dropping metal bar from new bed on it at home Onset: just prior to arrival Severity: moderate Pain/Injury Location: left foot Method of Injury: direct blow Modifying Factors: Worse With Movement Allergies and Home Medications Allergies Coded Allergies: Penicillins (Verified Allergy, Unknown, 01/27/17) Sulfa (Sulfonamide Antibiotics) (Verified Allergy, Unknown, 01/27/17) Home Medications Clonazepam 1 Mg Tablet, (Reported) Cyclobenzaprine HCl 10 Mg Tablet, 10 MG PO Q8H, #12 Ref 0 Prescribed by: FIFI GATICA on 03/19/171920 Diltiazem HCl 30 Mg Tablet, (Reported) Montelukast Sodium 10 Mg Tablet, (Reported) Sumatriptan Succinate 100 Mg Tablet, (Reported) Constitutional: see HPI EENTM: see HPI Respiratory: no symptoms reported Cardiovascular: no symptoms reported Genitourinary: no symptoms reported Musculoskeletal: see HPI Skin: no symptoms reported Psychiatric/Neurological: No Symptoms Reported Past Qxhxect-Zdmwaz-Dqbnpz Hx Patient Social History Type Used: Electronic/Vapor Recent Foreign Travel: No Contact w/Someone Who Travel: No Recent Hopitalizations: No Surgeries History of Surgeries: Yes (hernia, dental, esophagial, port, d&c) Surgeries: Adenoidectomy, Ear Surgery, Gallbladder, Tonsillectomy Respiratory Respiratory Disorders: Asthma Cardiovascular History of Cardiac Disorders: Yes Cardiac Disorders: Heart Murmur Neurological History of Neurological Disord: No Genitourinary History of Genitourinary Disor: No Gastrointestinal History of Gastrointestinal Di: No Musculoskeletal History of Musculoskeletal Dis: Yes Musculoskeletal Disorders: Rheumatoid Arthritis Endocrine History of Endocrine Disorders: No HEENT History of HEENT Disorders: No Cancer History of Cancer: No Psychosocial History of Psychiatric Problem: No Integumentary History of Skin or Integumenta: No Blood Transfusions History of Blood Disorders: No Physical Exam Vital Signs Vital Sign - Last 12Hours 04/26/17 20:55 Temp 98.1 Pulse 75 Resp 16 B/P (MAP) 134/75 (94) Pulse Ox 98 O2 Delivery Room Air Capillary Refill : General Appearance: WD/WN, no apparent distress HEENT: PERRL/EOMI, normal ENT inspection Neck: non-tender, full range of motion Respiratory: normal breath sounds, no respiratory distress, no accessory muscle use Gastrointestinal: non tender, soft Hips: bilateral hip non-tender, bilateral hip normal inspection, bilateral hip normal range of motion Legs: bilateral leg non-tender, bilateral leg normal inspection, bilateral leg normal range of motion Knees: bilateral knee non-tender, bilateral knee normal inspection, bilateral knee normal range of motion Ankles: bilateral ankle non-tender, bilateral ankle normal inspection, bilateral ankle normal range of motion Feet: left foot pain, left foot soft tissue tenderness, left foot other ( erythema over dorsum of left foot, no deformity. ) Neurologic/Psychiatric: alert, normal mood/affect, oriented x 3 Skin: normal color, warm/dry Progress/Results/Core Measures Results/Orders My Orders Orders - LALO COOPER APRN Foot, Left, 3 Views (04/26/17 20:56) Vital Signs/I&O Vital Sign - Last 12Hours 04/26/17 20:55 Temp 98.1 Pulse 75 Resp 16 B/P (MAP) 134/75 (94) Pulse Ox 98 O2 Delivery Room Air Departure Impression Impression: Primary Impression: Contusion of foot Disposition: 01 HOME, SELF-CARE Condition: Stable Departure-Patient Inst. Decision time for Depature: 20:58 Referrals: OK PARIKH DO (PCP/Family) Primary Care Physician Patient Instructions: Contusion (DC) Add. Discharge Instructions: 1. Return to ER for any concerns 2. Take tylenol and motrin for pain 3. All discharge instructions reviewed with patient and/or family. Voiced understanding. LALO COOPER APRN Apr 26, 2017 20:59
--- NOTE | 2017-04-26 21:33 | Diagnostic Imaging Report ---
INDICATION: Pain. Three views of the left foot were obtained. FINDINGS: The alignment of the left foot is normal. There is no fracture or dislocation. Soft tissues are unremarkable. IMPRESSION: No acute fracture or dislocation Dictated by: Dictated on workstation # [id number]
== END 2017-04-26 21:33 | disposition home or self-care (01) ==
LOC: EDUNIT# 20:48 → ER 20:51
DX: S90.32XA Contusion of left foot, initial encounter (principal); J45.909 Unspecified asthma, uncomplicated; M06.9 Rheumatoid arthritis, unspecified; Z87.19 Personal history of other diseases of the digestive system; Z90.89 Acquired absence of other organs; W20.8XXA Other cause of strike by thrown, projected or falling object, initial encounter; Y92.009 Unspecified place in unspecified non-institutional (private) residence as the place of occurrence of the external cause
CPT/HCPCS: 73630; 99283

== ENCOUNTER 2017-07-17 17:21 | Emergency (ER) | payer MEDICARE, MEDICAID ==
[~2017-07-17] VITALS: Ht 149.9 cm; Wt 62.6 kg
--- OUTSIDE RECORDS SUMMARY | 2017-07-17 17:26 | XMS REPORT | Continuity of Care Document ---
Demographics Preferred Language Unknown Marital Status Unknown [employer] Affiliation Unknown Race Unknown Ethnic Group Unknown Author Author [facility] Address Unknown Phone Unavailable Allergies There is no data. Medications There is no data. Problems Date Dx Coded Attending Type Code Diagnosis Diagnosed By 08/30/2012 V72.40 EXAMINATION OR TEST UNCONFIRMED Procedures Code [place] [address] URINE TEST (IN- HOUSE) 08/30/2012 Results There is no data. Encounters ACCT No. Visit Date/Time Discharge Status Pt. Type Provider Facility Loc./Unit Complaint [id number] 08/30/2012 08:45:00 Document Registration
[2017-07-17] MEDS ORDERED: BUP/EPI 0.5% 1:200,000 (SENSORCAINE) 30 ML VIAL INJ ONE (17:45)
[2017-07-17] MEDS ORDERED: DEXAMETHASONE 10 MG/ML (DECADRON) 1 ML VIAL IM ONE (17:45)
--- NOTE | 2017-07-17 17:48 | ED Back Pain ---
General Chief Complaint: Back Problems Stated Complaint: LOWER BACK PAIN Nursing Triage Note: ARRIVED VIA AMB ET STATES SHE FELL ON ICE HURTING HER LOWER LEFT BACK PAIN. Nursing Sepsis Screen: No Definite Risk Source of Information: Patient, Other Exam Limitations: No Limitations History of Present Illness Date Seen by Provider: Jul 17, 2017 Time Seen by Provider: 17:32 Initial Comments Patient presents to ER by private conveyance with her significant other a chief complaint that F couple days ago she fell on the ice on some concrete landing on her back. She denies passing out or striking her head. She has been taking Tylenol, ibuprofen, creams on the back, ice packs and heating pads as well as a hot bath and does not feel this is helping her back pain. She does not have a significant back pain history she says however she has been told in the past she has a bulging disc. She is afraid she might of broke something in her back because the pain is constant sharp and radiates around to her left buttock down to about the proximal one third of her left thigh. She has not had any further falls, weakness, numbness, paresthesia, incontinence of bowel or bladder, saddle anesthesia. She had a few leftover steroids from about a year ago and she took one and a half days worth and did not feel that the prednisone helped her. She does not have diabetes but she does have hypertension. She denies being on any blood thinners. The patient states she has rheumatoid arthritis in addition to osteoarthritis. She is not on any kind of immunocompromising medicines and other than the prednisone that she took 3 days ago she is not on any steroids or anti-rheumatologic's chronically. She does not follow with a wad impregnator. Allergies and Home Medications Allergies Coded Allergies: Penicillins (Verified Allergy, Unknown, 01/27/17) Sulfa (Sulfonamide Antibiotics) (Verified Allergy, Unknown, 01/27/17) Constitutional: No chills, No diaphoresis EENTM: No hearing loss, No ear pain Respiratory: No cough, No short of breath Cardiovascular: No chest pain, No edema Gastrointestinal: No abdominal pain, No constipation, No diarrhea, No nausea Genitourinary: No discharge, No dysuria, No incontinence : No (denies being on control.) Skin: No pruritus, No rash Past Avivdij-Kuyjmw-Trufgc Hx Patient Social History Alcohol Use: Occasionally Uses Recreational Drug Use: No Smoking Status: Current Everyday Smoker Type Used: Electronic/Vapor 2nd Hand Smoke Exposure: No Recent Foreign Travel: No Contact w/Someone Who Travel: No Recent Infectious Disease Expo: No Recent Hopitalizations: No Seasonal Allergies Seasonal Allergies: No Surgeries History of Surgeries: Yes (hernia, dental, esophagial, port, d&c) Surgeries: Adenoidectomy, Ear Surgery, Gallbladder, Tonsillectomy Respiratory Respiratory Disorders: Asthma Cardiovascular History of Cardiac Disorders: Yes Cardiac Disorders: Heart Murmur Neurological History of Neurological Disord: No Genitourinary History of Genitourinary Disor: No Gastrointestinal History of Gastrointestinal Di: No Musculoskeletal History of Musculoskeletal Dis: Yes Musculoskeletal Disorders: Rheumatoid Arthritis Endocrine History of Endocrine Disorders: No HEENT History of HEENT Disorders: No Cancer History of Cancer: No Psychosocial History of Psychiatric Problem: No Integumentary History of Skin or Integumenta: No Blood Transfusions History of Blood Disorders: No Physical Exam Vital Signs Vital Signs - First Documented 07/17/17 17:26 Temp 98.0 Pulse 78 Resp 18 B/P (MAP) 126/86 (99) Pulse Ox 98 Capillary Refill : Less Than 3 Seconds General Appearance: No Apparent Distress, WD/WN HEENT: PERRL/EOMI, Pharynx Normal Neck: Full Range of Motion, Normal Inspection, Non Tender, Supple Cardiovascular: No Edema, Normal Peripheral Pulses Respiratory: No Accessory Muscle Use, No Respiratory Distress Peripheral Pulses: 2+ Dorsalis Pedis (R), 2+ Left Dors-Pedis (L), 2+ Radial Pulses (R), 2+ Radial Pulses (L) Back: Normal Inspection, No CVA Tenderness, Vertebral Tenderness (midline lumbar tenderness with mild bilateral tenderness. Focal tenderness when pressing over the L5-S1 facet joint that re-creates her sciatic pain radiation) Extremity: Normal Capillary Refill, Normal Inspection, Normal Range of Motion, Non Tender, No Calf Tenderness, No Pedal Edema Neurologic/Psychiatric: Alert, Oriented x3, No Motor/Sensory Deficits Skin: Normal Color, Warm/Dry Additional Procedures : Progress Site was cleaned with chlorhexidine wipes and physical debridement and then cleaned with Betadine 3 sticks. After several minutes a 1-1/2 and inch 22- gauge needle with the foreign half milliliters of half percent Marcaine and epinephrine as well as 4-1/2 mL of 1% lidocaine without epinephrine and 10 mg of dexamethasone were inserted and withdrawn and no blood came back. The medicine was injected into the left L5-S1 facet joint and withdrawn. The patient tolerated the procedure very well. A Band-Aid was placed over the wound and there is no bleeding at the time of the injection. Progress/Results/Core Measures Results/Orders Lab Results Laboratory Tests Test 07/17/17 17:45 Range/Units Urine Color YELLOW Urine Clarity CLEAR Urine pH 7 5-9 Urine Specific [place] 1.010 L 1.016-1.022 Urine Protein NEGATIVE NEGATIVE Urine Glucose (UA) NEGATIVE NEGATIVE Urine Ketones NEGATIVE NEGATIVE Urine Nitrite NEGATIVE NEGATIVE Urine Bilirubin NEGATIVE NEGATIVE Urine Urobilinogen NORMAL NORMAL MG/DL Urine Leukocyte Esterase 1+ H NEGATIVE Urine RBC (Auto) NEGATIVE NEGATIVE Urine RBC NONE /HPF Urine WBC 0-2 /HPF Urine Squamous Epithelial Cells 5-10 /HPF Urine Crystals NONE /LPF Urine Bacteria NEGATIVE /HPF Urine Casts NONE /LPF Urine Mucus NEGATIVE /LPF Urine Culture Indicated NO My Orders Orders - RENA CARSON Lumbar Spine - 2-3 Views (07/17/17 17:41) Bupivacaine 0.5% W/Epi Inj (Sensorcaine (07/17/17 17:45) Dexamethasone Injection (Decadron Inject (07/17/17 17:45) Urine Bedside (07/17/17 17:48) Ua Culture If Indicated (07/17/17 17:48) Ketorolac Injection (Toradol Injection) (07/17/17 18:00) Medications Given in ED Current Medications Medications Dose Ordered Sig/Michelle Route Start Time Stop Time Status Last Admin Dose Admin Ketorolac Tromethamine 10 mg ONCE ONCE IM 07/17/17 18:00 07/17/17 18:01 DC 07/17/17 18:04 10 MG Vital Signs/I&O Vital Sign - Last 12Hours 07/17/17 17:26 Temp 98.0 Pulse 78 Resp 18 B/P (MAP) 126/86 (99) Pulse Ox 98 Blood Pressure Mean: 99 Progress Note : Time: 17:47 Progress Note Going to trial her on a longer dose steroids and inject her focal L5-S1 facet arthropathy with Marcaine, lidocaine, dexamethasone. We'll get a urine test and urinalysis looking for red blood cells might indicate a fracture kidney given her recent fall as well as some x-rays and give her some ketorolac. Urine test was negative. UA was negative for red blood cells. Diagnostic Imaging Diagonstic Imaging: Xray Plain Films/CT/US/NM/MRI: other (lumbar x-rays) Comments No acute osseous abnormalities noted. [facility] [place], [place] NAME: [facility] REC#: [id number] PT STATUS: REG ER : 1980 PHYSICIAN: RENA CARSON MD ADMIT DATE: 07/17/17/ER Draft Date of Exam:07/17/17 LUMBAR SPINE - 2-3 VIEWS INDICATION: Fall on ice two days prior. Low back pain. FINDINGS: Alignment of the lumbar spine appears normal. The vertebral body heights appear maintained. Disc spaces appear preserved. The facets appear normally aligned. Visualized bones of the pelvis are unremarkable. IMPRESSION: Normal height and alignment of the lumbar spine. Dictated on workstation # [id number] Dict: 07/17/171801 Trans: 07/17/171808 [id number] Interpreted by: BENJY ECKERT MD Electronically signed by: Reviewed: Reviewed by Me Departure Impression Impression: Primary Impression: Fall Qualified Codes: W19.XXXD - Unspecified fall, subsequent encounter Additional Impressions: Lumbar back pain Facet arthritis, degenerative, L5-S1 level, lumbosacral spine Disposition: 01 HOME, SELF-CARE Condition: Improved Departure-Patient Inst. Decision time for Depature: 18:31 Referrals: OK PARIKH DO (PCP/Family) Primary Care Physician Patient Instructions: Low Back Pain (DC) Add. Discharge Instructions: Use the Tylenol 1000 mg every 8 hours as well as the ibuprofen 800 mg. Use heating pads or creams such as icy hot. Obtain a back brace and wear that on the days that it helps with your back pain. Expect your pain did improve week by week and usually last 4-6 weeks. You can use chiropractic D or you can see her primary care physician for referral to physical therapy if you don't feel like your improving in a reasonable amount of time. Stay mobile and start your back strengthening exercises. Expect the steroids to start taking in 1-2 days and some of the side effects may include flushing of the face, increased appetite, increased blood pressure and difficulty sleeping. You may use Benadryl 1 tablet at night if you need help sleeping. All discharge instructions reviewed with patient and/or family. Voiced understanding. Work/School Note: Work Release Form Date Seen in the Emergency Department: Jul 17, 2017 Return to Work: Jul 20, 2017 Restrictions: No Restrictions Copy Copies To 1: YANET ZAMORA TITUS J Jul 17, 2017 17:48
[2017-07-17 17:55] LABS: BILIRUBIN,URINE NEGATIVE (NEGATIVE); CLARITY,URINE CLEAR; COLOR,URINE YELLOW; GLUCOSE, URINE (UA) NEGATIVE (NEGATIVE); KETONES,URINE NEGATIVE (NEGATIVE); LEUKOCYTE ESTERASE ,URINE 1+ (NEGATIVE); NITRITE,URINE NEGATIVE (NEGATIVE); PH,URINE 7 (5-9); PROTEIN,URINE NEGATIVE (NEGATIVE); UROBILINOGEN,URINE NORMAL (NORMAL)
[2017-07-17] MEDS ORDERED: KETOROLAC 30 MG/ML VIAL IM ONE (18:00)
[2017-07-17 18:02] LABS: BACTERIA,URINE NEGATIVE /HPF; WBC,URINE 0-2 /HPF
--- NOTE | 2017-07-17 18:09 | Diagnostic Imaging Report ---
INDICATION: Fall on ice two days prior. Low back pain. FINDINGS: Alignment of the lumbar spine appears normal. The vertebral body heights appear maintained. Disc spaces appear preserved. The facets appear normally aligned. Visualized bones of the pelvis are unremarkable. IMPRESSION: Normal height and alignment of the lumbar spine. Dictated by: Dictated on workstation # [id number]
[2017-07-17 18:39] VITALS: BP 126/86
== END 2017-07-17 18:38 | disposition home or self-care (01) ==
LOC: EDUNIT# 17:21 → ER 17:23
DX: M47.817 Spondylosis without myelopathy or radiculopathy, lumbosacral region (principal); J45.909 Unspecified asthma, uncomplicated; M06.9 Rheumatoid arthritis, unspecified; F17.210 Nicotine dependence, cigarettes, uncomplicated; Z87.19 Personal history of other diseases of the digestive system; Z90.89 Acquired absence of other organs; Z88.0 Allergy status to penicillin; Z88.2 Allergy status to sulfonamides; W18.30XA Fall on same level, unspecified, initial encounter
CPT/HCPCS: 72100; 81000; 84703; 96372

== ENCOUNTER 2017-10-15 10:08 | Emergency (ER) | payer MEDICARE, MEDICAID ==
[~2017-10-15] VITALS: Ht 149.9 cm; Wt 63.5 kg
--- OUTSIDE RECORDS SUMMARY | 2017-10-15 10:15 | XMS REPORT ---
Author Author ROLAND AN Organization [facility] Address [address] [place] [address] Care Team Providers Care Chip Crusher Operator Name Role Phone ROLAND AN Unavailable PROBLEMS Type Condition ICD9-CM Code EYU06-IG Code Onset Dates Condition Status SNOMED Code Problem Anxiety about health F41.8 Active 439415030 Problem Anxiety F41.9 Active 19374545 Problem History of autoimmune disease Z86.2 Active 594072066 Problem Barretts esophagus without dysplasia K22.70 Active 472167839 Problem Hypothyroidism, unspecified type E03.9 Active 54568487 Problem Intractable migraine without status migrainosus, unspecified migraine type G43.919 Active 531119060 Problem Other chronic pain G89.29 Active 43814808 Problem Lumbago with sciatica, left side M54.42 Active 603069585 Problem Cardiac arrhythmia, unspecified cardiac arrhythmia type I49.9 Active 666835277 Problem Chronic GERD K21.9 Active 069821664 Problem Moderate persistent asthma with exacerbation J45.41 Active 168890716 Problem Essential hypertension I10 Active 63129322 ALLERGIES Substance Reaction Event Type Date Status Latex itching Drug Allergy Nov, Active Sulfur nausea Drug Allergy Nov, Active Phenergan anaphylaxis Drug Allergy Nov, Active Penicillin V Potassium itching Drug Allergy Nov, Active ENCOUNTERS Encounter Location Date Diagnosis [facility] [id number] [address] Jul, Cough R05 and Acute bronchitis, unspecified organism J20.9 [facility] [address], [place] [address] Jul, Other chronic pain G89.29 [facility] [id number] [address] Jul, Essential hypertension I10 [place] [id number] [place] [address] Jul, [place] [address] [address] Jul, [place] [id number] [place] [address] Jul, Essential hypertension I10 ; Intractable migraine without status migrainosus, unspecified migraine type G43.919 ; Anxiety F41.9 ; Cardiac arrhythmia, unspecified cardiac arrhythmia type I49.9 ; Moderate persistent asthma with exacerbation J45.41 ; High risk medication use Z79.899 ; Controlled substance agreement signed Z79.899 ; Barretts esophagus without dysplasia K22.70 ; Lumbago with sciatica, left side M54.42 and Other chronic pain G89.[address] [address] 16 Jun, 2017 Anxiety F41.9 [place] [address] [address] 01 Jun, 2017 Lumbago with sciatica, left side M54.42 ; Other chronic pain G89.29 and Moderate persistent asthma with exacerbation J45.41 [facility] [place] [id number] [place] [address] May, Cough R05 ; Nausea R11.0 and Viral URI J06.9 [facility] [place] [id number] [place] [address] May, Viral URI J06.9 [facility] [address] [address] May, Sore throat J02.9 and Acute suppurative otitis media of left ear without spontaneous rupture of tympanic membrane, recurrence not specified H66.002 [place] [id number] [place] [address] 08 Apr, 2017 Chest pain, unspecified type R07.9 ; Dizziness R42 ; Essential hypertension I10 and Tobacco use Z72.0 [place] [address], [place] [address] Mar, [place] [id number] [place] [address] Mar, [place] [id number] [place] [address] Mar, Cough R05 ; Sore throat J02.9 ; Other viral agents as the cause of diseases classified elsewhere B97.89 and Acute sinusitis, unspecified J01.90 [place] [id number] [place] [address] Feb, Palpitations R00.2 [facility] [place] [id number] [place] [address] Feb, Intractable migraine without status migrainosus, unspecified migraine type G43.919 [place] [id number] [place] [address] Feb, [place] [id number] [place] [address] Jan, Cough R05 ; Cardiac arrhythmia, unspecified cardiac arrhythmia type I49.9 ; Chronic seasonal allergic rhinitis due to other allergen J30.2 ; Chronic GERD K21.9 ; Anxiety F41.9 and Hypothyroidism, unspecified type E03.9 [facility] [address] [place] [address] Jan, Acute cystitis with hematuria N30.01 [facility] [id number], [place] [address] Dec, [facility] [id number] [place] [address] Nov, Anxiety F41.9 and Costochondral chest pain R07.1 [facility] [id number] [place] [address] 17 Nov, 2016 [facility] [id number], [place] [address] 13 Nov, 2016 Hypothyroidism, unspecified type E03.9 and Anxiety F41.9 [facility] [place] [address] [id number] [id number] 07 Nov, 2016 Anxiety about health F41.8 [facility] [id number], [place] [address] 09 Oct, 2016 STD exposure Z20.2 and Anxiety F41.9 [facility] [id number] [place] [address] September, Anxiety disorder, unspecified type F41.9 [facility] [id number], [place] [address] September, Anxiety about health F41.8 [facility] [id number], [place] [address] Aug, History of autoimmune disease Z86.2 and Hypothyroidism , unspecified type E03.9 [facility] [id number], [place] [address] Aug, Anxiety about health F41.8 and Bilateral serous otitis media, unspecified chronicity H65.93 [facility] [id number], [place] [address] Jul, Anxiety about health F41.8 [facility] [id number], [place] [address] Jun, Low back sprain, initial encounter S33.9XXA [facility] [id number], [place] [address] 24 Jun, 2016 Barretts esophagus without dysplasia K22.70 ; Intractable migraine without status migrainosus, unspecified migraine type G43.919 and Hypothyroidism, unspecified type E03.9 [facility] [address] [id number] [place] [address] Jun, Subacute frontal sinusitis J01.10 [facility] [address] [id number], [place] [address] May, Intractable migraine without status migrainosus, unspecified migraine type G43.919 [facility] [address] [id number], [place] [address] May, Barretts esophagus without dysplasia K22.70 [facility] [address] [facility] [id number] [id number] Aug, IMMUNIZATIONS No Known Immunizations SOCIAL HISTORY Never Assessed REASON FOR VISIT ER f/jaclyn Pillai RN, Follow-up for chest pain. PLAN OF CARE Activity Details Follow Up 3 Months Reason: VITAL SIGNS Height 64 in 2016-12-15 Weight 142.8 lbs 2016-12-15 Temperature 98.2 degrees Fahrenheit 2016-12-15 Heart Rate 53 bpm 2016-12-15 Respiratory Rate 18 2016-12-15 BMI 24.51 kg/m2 2016-12-15 Blood pressure systolic 122 mmHg 2016-12-15 Blood pressure diastolic 80 mmHg 2016-12-15 MEDICATIONS Medication Instructions Dosage Frequency Start Date End Date Duration Status Levothyroxine Sodium 100 MCG Orally Once a day 1 tablet on an empty stomach in the morning 24h 30 days Active Famotidine 40 MG Orally Twice a day 1 tablet as needed 12h Active Klonopin 1 MG Orally PRN 1 tablet Aug, Active Diltiazem HCl 30 MG Orally Three times a day 1 tablet before meals and at bedtime 8h Active RESULTS No Results PROCEDURES Procedure Date Ordered Result Body Site [facility] VISIT ESTABLISHED PATIENT December 15, 2016 INSTRUCTIONS MEDICATIONS ADMINISTERED No Known Medications MEDICAL (GENERAL) HISTORY Type Description Date Medical History polymyositis Medical History sclerderma Medical History arthritis Medical History fibromylagia Medical History gerd Medical History mitral valve prolapse Medical History heart murmar Medical History coronary vasospasms Medical History anxiety Surgical History tonsils Surgical History tubes in ears Surgical History [facility] cath Surgical History hernia repair Surgical History EGD Surgical History uterine ablation Surgical History dilatation and curettage Hospitalization History pancreatitis Hospitalization History pericartitis Hospitalization History kidney stones Hospitalization History Chest pains 08/2016 Hospitalization History Chest pain 11/2016 Hospitalization History Left foot injury - Hospital ED 04/26/17 Hospitalization History ED for back pain 07/11
--- OUTSIDE RECORDS SUMMARY | 2017-10-15 10:15 | XMS REPORT ---
Author Author RANDY Kitchen [facility] IN [facility] Address [address] [place] [address] Care Team Providers Care Route Sales Driver Name Role Phone RANDY Kitchen Unavailable PROBLEMS Type Condition ICD9-CM Code [id number] Code Onset Dates Condition Status SNOMED Code Problem History of autoimmune disease Z86.2 Active 925195917 Problem Chronic GERD K21.9 Active 482601660 Problem Anxiety F41.9 Active 55601851 Problem Barretts esophagus without dysplasia K22.70 Active 035520665 Problem Hypothyroidism, unspecified type E03.9 Active 50537537 Problem Intractable migraine without status migrainosus, unspecified migraine type G43.919 Active 872603043 Problem Anxiety about health F41.8 Active 081568021 Problem Environmental allergies Z91.09 Active 755725201 Problem Other chronic pain G89.29 Active 48930452 Problem Essential hypertension I10 Active 50623730 Problem Cardiac arrhythmia, unspecified cardiac arrhythmia type I49.9 Active 714195827 Problem Lumbago with sciatica, left side M54.42 Active 387856792 Problem Moderate persistent asthma with exacerbation J45.41 Active 252860631 ALLERGIES Substance Reaction Event Type Date Status Latex itching Drug Allergy Feb, Active Sulfur nausea Drug Allergy Feb, Active Phenergan anaphylaxis Drug Allergy Feb, Active Penicillin V Potassium itching Drug Allergy Feb, Active ENCOUNTERS Encounter Location Date Diagnosis [facility] [address] [facility] [id number] [address] Oct, [facility] [address] [id number] [address] September, [facility] [address] [id number], [place] [address] Aug, [facility] [id number] [place] [address] Aug, Essential hypertension I10 ; Moderate persistent asthma with exacerbation J45.41 ; Lumbago with sciatica, left side M54.42 and Environmental allergies Z91.09 [facility] [id number] [place] [address] Aug, Environmental allergies Z91.09 and Cough R05 [place] [address] [address] Aug, Anxiety F41.9 [facility] [address] [address] Jul, Cough R05 and Acute bronchitis, unspecified organism J20.9 [place] [address] [address] Jul, Other chronic pain G89.29 [place] [address] [address] Jul, Essential hypertension I10 [place] [address] [address] Jul, [place] [address] [address] Jul, [place] [address] [address] Jul, Essential hypertension I10 ; Intractable migraine without status migrainosus, unspecified migraine type G43.919 ; Anxiety F41.9 ; Cardiac arrhythmia, unspecified cardiac arrhythmia type I49.9 ; Moderate persistent asthma with exacerbation J45.41 ; High risk medication use Z79.899 ; Controlled substance agreement signed Z79.899 ; Barretts esophagus without dysplasia K22.70 ; Lumbago with sciatica, left side M54.42 and Other chronic pain G89.29 [place] [id number] [place] [address] 16 Jun, 2017 Anxiety F41.9 [place] [address] [address] Jun, Lumbago with sciatica, left side M54.42 ; Other chronic pain G89.29 and Moderate persistent asthma with exacerbation J45.41 [facility] [place] [address] [address] May, Cough R05 ; Nausea R11.0 and Viral URI J06.9 [facility] [address] [address] May, Viral URI J06.9 [facility] [address] [address] May, Sore throat J02.9 and Acute suppurative otitis media of left ear without spontaneous rupture of tympanic membrane, recurrence not specified H66.[address] [address] Apr, Chest pain, unspecified type R07.9 ; Dizziness R42 ; Essential hypertension I10 and Tobacco use Z72.[address] [address] Mar, [address] [address] Mar, [address] [address] Mar, Cough R05 ; Sore throat J02.9 ; Other viral agents as the cause of diseases classified elsewhere B97.89 and Acute sinusitis, unspecified J01.[address] [address] Feb, Palpitations R00.2 [facility] [address] [address] Feb, Intractable migraine without status migrainosus, unspecified migraine type G43.919 [address], [place] [address] 06 Feb, 2017 [facility] [address], [place] [address] 19 Jan, 2017 Cough R05 ; Cardiac arrhythmia, unspecified cardiac arrhythmia type I49.9 ; Chronic seasonal allergic rhinitis due to other allergen J30.2 ; Chronic GERD K21.9 ; Anxiety F41.9 and Hypothyroidism, unspecified type E03.9 [facility] [address], [place] [address] 13 Jan, 2017 Acute cystitis with hematuria N30.01 [facility] [address] [place], [place] [id number] [place] [address] 17 Dec, 2016 [facility] [address] [place] [id number] [place] [address] Nov, Anxiety F41.9 and Costochondral chest pain R07.1 [facility] [address] [place] [address] [place] [address] 17 Nov, 2016 [facility] [address] [place] [address] [place] [address] Nov, Hypothyroidism, unspecified type E03.9 and Anxiety F41.9 [facility] [id number] [id number] Nov, Anxiety about health F41.8 [facility] [address] [place] [address] 09 Oct, 2016 STD exposure Z20.2 and Anxiety F41.9 [facility] [address] [place] [address] [place] [address] September, Anxiety disorder, unspecified type F41.9 [facility] [address] [place] [id number] [place] [address] September, Anxiety about health F41.8 [facility] [address] [place] [address], [place] [address] 27 Aug, 2016 History of autoimmune disease Z86.2 and Hypothyroidism , unspecified type E03.9 [facility] [address] [id number] [place] [address] 14 Aug, 2016 Anxiety about health F41.8 and Bilateral serous otitis media, unspecified chronicity H65.93 [facility] [address] [place] [address] [place] [address] Jul, Anxiety about health F41.8 [facility] [address] [place] [id number] [place] [address] Jun, Low back sprain, initial encounter S33.9XXA [facility] [address] [place] [address] [place] [address] Jun, Barretts esophagus without dysplasia K22.70 ; Intractable migraine without status migrainosus, unspecified migraine type G43.919 and Hypothyroidism, unspecified type E03.9 [facility] [address] [place] [id number] [place] [address] Jun, Subacute frontal sinusitis J01.10 [facility] [address] [place] [id number] [place] [address] May, Intractable migraine without status migrainosus, unspecified migraine type G43.919 [facility] [address] [place], [place] [id number] [place] [address] May, Barretts esophagus without dysplasia K22.70 [facility] [id number] [place] [id number] Aug, IMMUNIZATIONS Vaccine Route Administration Date Status TORADOL (IM) 60 MG/2ML (UP TO 15 MG) IM Intramuscular Mar 13, 2017 Administered SOCIAL HISTORY Never Assessed REASON FOR VISIT Migraine, states she is out of her migraine medications. BLANE Valle. PLAN OF CARE Activity Details Follow Up prn Reason: VITAL SIGNS Height 64 in 2017-03-13 Weight 141 lbs 2017-03-13 Temperature 98.6 degrees Fahrenheit 2017-03-13 Heart Rate 82 bpm 2017-03-13 Respiratory Rate 18 2017-03-13 BMI 24.20 kg/m2 2017-03-13 Blood pressure systolic 140 mmHg 2017-03-13 Blood pressure diastolic 86 mmHg 2017-03-13 MEDICATIONS Medication Instructions Dosage Frequency Start Date End Date Duration Status Klonopin 1 MG Orally PRN 1 tablet Aug, Active Cardizem 30 MG Orally 3 times a day 1 tablet before meals and at bedtime 8h Jan, 90 days Active Singulair 10 mg Orally Once a day 1 tablet in the evening 24h Jan, 90 days Active Imitrex 100 MG Orally Twice a day 1 tablet as needed 12h Feb, 10 days Active Famotidine 40 MG Orally Twice a day 1 tablet as needed 12h Active RESULTS No Results PROCEDURES Procedure Date Ordered Result Body Site [facility] VISIT ESTABLISHED PATIENT Mar 13, 2017 THER/PROPH/DIAG INJ, SC/IM Mar 13, 2017 TORADOL (IM) 60 MG/2ML (UP TO 15 MG) Mar 13, 2017 INSTRUCTIONS MEDICATIONS ADMINISTERED No Known Medications MEDICAL (GENERAL) HISTORY Type Description Date Medical History sclerderma Medical History polymyositis Medical History arthritis Medical History fibromylagia Medical [...]
--- OUTSIDE RECORDS SUMMARY | 2017-10-15 10:15 | XMS REPORT ---
Author Author OK PARIKH Organization [facility] [place] Address [address] [place] [address] Care Team Providers Care Shoe Sprayer Name Role Phone OK PARIKH Unavailable PROBLEMS Type Condition ICD9-CM Code RXL87-OC Code Onset Dates Condition Status SNOMED Code Problem History of autoimmune disease Z86.2 Active 815129743 Problem Chronic GERD K21.9 Active 255471491 Problem Anxiety F41.9 Active 15768604 Problem Barretts esophagus without dysplasia K22.70 Active 250081799 Problem Hypothyroidism, unspecified type E03.9 Active 23932788 Problem Intractable migraine without status migrainosus, unspecified migraine type G43.919 Active 074313305 Problem Anxiety about health F41.8 Active 544316495 Problem Environmental allergies Z91.09 Active 846745161 Problem Other chronic pain G89.29 Active 78398942 Problem Essential hypertension I10 Active 95320473 Problem Cardiac arrhythmia, unspecified cardiac arrhythmia type I49.9 Active 241500331 Problem Lumbago with sciatica, left side M54.42 Active 364727221 Problem Moderate persistent asthma with exacerbation J45.41 Active 377516908 ALLERGIES Substance Reaction Event Type Date Status Latex itching Drug Allergy Jan, Active Sulfur nausea Drug Allergy Jan, Active Phenergan anaphylaxis Drug Allergy Jan, Active Penicillin V Potassium itching Drug Allergy Jan, Active ENCOUNTERS Encounter Location Date Diagnosis [facility] [place] [address] [facility] [id number], [place] [address] September, [facility] [place] [address] [id number], [place] [address] Aug, [facility] [place] [address] [facility] [id number], [place] [address] Aug, Essential hypertension I10 ; Moderate persistent asthma with exacerbation J45.41 ; Lumbago with sciatica, left side M54.42 and Environmental allergies Z91.09 [facility] [address] [id number] [place] [address] Aug, Environmental allergies Z91.09 and Cough R05 [place] [address] [place] [address] [id number] [place] [address] Aug, Anxiety F41.9 [facility] [address] [address] Jul, Cough R05 and Acute bronchitis, unspecified organism J20.9 [place] [address] [address] Jul, Other chronic pain G89.29 [place] [address] [address] Jul, Essential hypertension I10 [place] [address] [address] Jul, [place] [address] [place] [id number] [place] [address] Jul, [place] [address] [address] Jul, Essential hypertension I10 ; Intractable migraine without status migrainosus, unspecified migraine type G43.919 ; Anxiety F41.9 ; Cardiac arrhythmia, unspecified cardiac arrhythmia type I49.9 ; Moderate persistent asthma with exacerbation J45.41 ; High risk medication use Z79.899 ; Controlled substance agreement signed Z79.899 ; Barretts esophagus without dysplasia K22.70 ; Lumbago with sciatica, left side M54.42 and Other chronic pain G89.29 [place] [address] [place] [address] [id number] [place] [address] Jun, Anxiety F41.9 [place] [address] [address] 01 Feb, 2018 Lumbago with sciatica, left side M54.42 ; Other chronic pain G89.29 and Moderate persistent asthma with exacerbation J45.41 [facility] IN [address] [address] May, Cough R05 ; Nausea R11.0 and Viral URI J06.9 [facility] IN [address] [address] May, Viral URI J06.9 [facility] IN [address] [address] May, Sore throat J02.9 and Acute suppurative otitis media of left ear without spontaneous rupture of tympanic membrane, recurrence not specified H66.[address] [address] Apr, Chest pain, unspecified type R07.9 ; Dizziness R42 ; Essential hypertension I10 and Tobacco use Z72.[address] [address] Mar, [address] [address] Mar, [address] [address] Mar, Cough R05 ; Sore throat J02.9 ; Other viral agents as the cause of diseases classified elsewhere B97.89 and Acute sinusitis, unspecified J01.[address] [address] Feb, Palpitations R00.2 [facility] IN [address] [address] Feb, Intractable migraine without status migrainosus, unspecified migraine type G43.[address] [address] Feb, [address] [id number], [place] [address] 19 Jan, 2017 Cough R05 ; Cardiac arrhythmia, unspecified cardiac arrhythmia type I49.9 ; Chronic seasonal allergic rhinitis due to other allergen J30.2 ; Chronic GERD K21.9 ; Anxiety F41.9 and Hypothyroidism, unspecified type E03.9 [facility] [address], [place] [address] 13 Jan, 2017 Acute cystitis with hematuria N30.01 [facility] [address] [place], [place] [id number] [place] [address] 17 Dec, 2016 [facility] [address] [place], [place] [id number] [place] [address] Nov, Anxiety F41.9 and Costochondral chest pain R07.1 [facility] [address] [place], [place] [address] [place] [address] 17 Nov, 2016 [facility] [address] [place] [id number] [place] [address] 13 Nov, 2016 Hypothyroidism, unspecified type E03.9 and Anxiety F41.9 [facility] [id number] [place] [id number] Nov, Anxiety about health F41.8 [facility] [address] [place] [address] 09 Oct, 2016 STD exposure Z20.2 and Anxiety F41.9 [facility] [address] [place], [place] [address] [place] [address] September, Anxiety disorder, unspecified type F41.9 [facility] [address] [place] [id number] [place] [address] September, Anxiety about health F41.8 [facility] [address] [place] [address] Aug, History of autoimmune disease Z86.2 and Hypothyroidism , unspecified type E03.9 [facility] [id number], [place] [address] Aug, Anxiety about health F41.8 and Bilateral serous otitis media, unspecified chronicity H65.93 [facility] [id number], [place] [address] Jul, Anxiety about health F41.8 [facility] [address] [place] [address] [id number] [place] [address] Jun, Low back sprain, initial encounter S33.9XXA [facility] [address] [place], [place] [address] [place] [address] Jun, Barretts esophagus without dysplasia K22.70 ; Intractable migraine without status migrainosus, unspecified migraine type G43.919 and Hypothyroidism, unspecified type E03.9 [facility] [address] [place] [id number] [place] [address] Jun, Subacute frontal sinusitis J01.10 [facility] [id number] [place] [address] May, Intractable migraine without status migrainosus, unspecified migraine type G43.919 [facility] [id number] [place] [address] May, Barretts esophagus without dysplasia K22.70 [facility] [id number] [place] [id number] Aug, IMMUNIZATIONS No Known Immunizations SOCIAL HISTORY Never Assessed REASON FOR VISIT Transition of Care -- rina flores, needing refill on medications PLAN OF CARE Activity Details Follow Up annually and sooner if needed Reason: VITAL SIGNS Height 64 in 2017-02-10 Weight 141.0 lbs 2017-02-10 Temperature 97.8 degrees Fahrenheit 2017-02-10 BMI 24.20 kg/m2 2017-02-10 Blood pressure systolic 128 mmHg 2017-02-10 Blood pressure diastolic 70 mmHg 2017-02-10 MEDICATIONS Medication Instructions Dosage Frequency Start Date End Date Duration Status Tessalon Perles 100 mg Orally Three times a day PRN cough 1 capsule as needed Jan, Feb, 14 days Active Omeprazole 40 mg Orally Once a day 1 capsule 24h May, 30 day(s ) Active Klonopin 1 MG Orally PRN 1 tablet Aug, Active Famotidine 40 MG Orally Twice a day 1 tablet as needed 12h Active Hydrocodone-Chlorpheniramine 5-4 MG/5ML Orally every 12 hrs PRN night time cough 5 ml as needed Jan, Feb, 14 days Active Diltiazem HCl 30 MG Orally Three times a day 1 tablet before meals and at bedtime 8h Active Singulair 10 mg Orally Once a day 1 tablet in the evening 24h Jan, 90 days Active Hydrocodone-Chlorpheniramine 5-4 MG/5ML Orally every 6 hrs PRN cough 5 ml as needed Jan, Feb, 14 days Active Hydrocodone-Chlorpheniramine 5-4 MG/5ML Orally every 6 hrs 5 ml as needed 6h Jan, Feb, 14 days Active Promethazine-Codeine 6.25-10 MG/5ML Orally every 6 hrs prn cough 5 ml as needed Jan, Feb, 14 days Active Clonazepam 1 MG Orally Twice a day PRN 1 tablet Jan, 30 days Active Cardizem 30 MG Orally 3 times a day 1 tablet before meals and at bedtime 8h Jan, 90 days Active RESULTS Name Result Date Reference Range TSH 2017-02-10 TSH 4.100 0.450-4.500 PROCEDURES Procedure Date Ordered Result Body Site [facility] Feb 10, 2017 [facility] VISIT ESTABLISHED PATIENT Feb 10, 2017 VENCUONG, ROUTINE* Feb 10, 2017 INSTRUCTIONS MEDICATIONS ADMINISTERED No Known Medications [...]
--- OUTSIDE RECORDS SUMMARY | 2017-10-15 10:16 | XMS REPORT ---
Author Author JL OK Organization [facility] Address [address] [place] [address] Care Team Providers Care Prospecting Driller Name Role Phone OK PARIKH Unavailable PROBLEMS Type Condition ICD9-CM Code [id number] Code Onset Dates Condition Status SNOMED Code Problem History of autoimmune disease Z86.2 Active 127969825 Problem Chronic GERD K21.9 Active 736675807 Problem Anxiety F41.9 Active 34526966 Problem Barretts esophagus without dysplasia K22.70 Active 200762987 Problem Hypothyroidism, unspecified type E03.9 Active 81007922 Problem Intractable migraine without status migrainosus, unspecified migraine type G43.919 Active 120865971 Problem Anxiety about health F41.8 Active 524813840 Problem Environmental allergies Z91.09 Active 071652713 Problem Other chronic pain G89.29 Active 94239108 Problem Essential hypertension I10 Active 56726726 Problem Cardiac arrhythmia, unspecified cardiac arrhythmia type I49.9 Active 493050929 Problem Lumbago with sciatica, left side M54.42 Active 833480926 Problem Moderate persistent asthma with exacerbation J45.41 Active 610248713 ALLERGIES No Information ENCOUNTERS Encounter Location Date Diagnosis [place] [address], [place] [address] Oct, [place] [address] [place] [address] September, [place] [address] [place] [id number] [place] [address] Aug, [place] [address] [place] [address] Aug, Essential hypertension I10 ; Moderate persistent asthma with exacerbation J45.41 ; Lumbago with sciatica, left side M54.42 and Environmental allergies Z91.09 [facility] [id number] [place] [address] Aug, Environmental allergies Z91.09 and Cough R05 [facility] [id number] [place] [address] Aug, Anxiety F41.9 [facility] [id number] [place] [address] Jul, Cough R05 and Acute bronchitis, unspecified organism J20.9 [place] [address] [place] [id number] [place] [address] Jul, Other chronic pain G89.29 [place] [address] [place] [id number] [place] [address] 27[address] Jul, Essential hypertension I10 [place] [address] [address] Jul, [place] [address] [place] [id number] [place] [address] Jul, [place] [address] [place] [id number] [place] [address]17[address] Jul, Essential hypertension I10 ; Intractable migraine without status migrainosus, unspecified migraine type G43.919 ; Anxiety F41.9 ; Cardiac arrhythmia, unspecified cardiac arrhythmia type I49.9 ; Moderate persistent asthma with exacerbation J45.41 ; High risk medication use Z79.899 ; Controlled substance agreement signed Z79.899 ; Barretts esophagus without dysplasia K22.70 ; Lumbago with sciatica, left side M54.42 and Other chronic pain G89.29 [place] [address] [place] [id number] [place] [address] 69[address] Jun, Anxiety F41.9 [place] [address] [place] [id number] [place] [address]84[address] 385[address] Jun, Lumbago with sciatica, left side M54.42 ; Other chronic pain G89.29 and Moderate persistent asthma with exacerbation J45.41 [facility] [address] [address] May, Cough R05 ; Nausea R11.0 and Viral URI J06.9 [facility] [address] [address] May, Viral URI J06.9 [facility] [address] [address] May, Sore throat J02.9 and Acute suppurative otitis media of left ear without spontaneous rupture of tympanic membrane, recurrence not specified H66.[address] [address] Apr, Chest pain, unspecified type R07.9 ; Dizziness R42 ; Essential hypertension I10 and Tobacco use Z72.[address] [address] Mar, [address] [address] Mar, [address] [address] Mar, Cough R05 ; Sore throat J02.9 ; Other viral agents as the cause of diseases classified elsewhere B97.89 and Acute sinusitis, unspecified J01.90 [place] [address] [address] Feb, Palpitations R00.2 [facility] [address] [address] Feb, Intractable migraine without status migrainosus, unspecified migraine type G43.[address] [address] Feb, [place] [address] [address] 19 Jan, 2017 Cough R05 ; Cardiac arrhythmia, unspecified cardiac arrhythmia type I49.9 ; Chronic seasonal allergic rhinitis due to other allergen J30.2 ; Chronic GERD K21.9 ; Anxiety F41.9 and Hypothyroidism, unspecified type E03.9 [facility] [address] [id number] [address] 13 Jan, 2017 Acute cystitis with hematuria N30.01 [facility] [address] [place], [place] [id number] [place] [address] 17 Dec, 2016 [facility] [address] [place], [place] [id number] [place] [address] Nov, Anxiety F41.9 and Costochondral chest pain R07.1 [facility] [address] [place] [id number] [place] [address] 17 Nov, 2016 [facility] [address] [place], [place] [id number] [place] [address] Nov, Hypothyroidism, unspecified type E03.9 and Anxiety F41.9 [facility] [id number] [place] [id number] Nov, Anxiety about health F41.8 [facility] [address] [place] [id number] [place] [address] Oct, STD exposure Z20.2 and Anxiety F41.9 [facility] [address] [place] [address] [place] [address] September, Anxiety disorder, unspecified type F41.9 [facility] [address] [place] [id number] [place] [address] September, Anxiety about health F41.8 [facility] [address] [place] [id number] [place] [address] Aug, History of autoimmune disease Z86.2 and Hypothyroidism , unspecified type E03.9 [facility] [id number] [address] 14 Aug, 2016 Anxiety about health F41.8 and Bilateral serous otitis media, unspecified chronicity H65.93 [facility] [id number], [place] [address] Jul, Anxiety about health F41.8 [facility] [address] [place] [id number], [place] [address] Jun, Low back sprain, initial encounter S33.9XXA [facility] [address] [place] [address] [place] [address] Jun, Barretts esophagus without dysplasia K22.70 ; Intractable migraine without status migrainosus, unspecified migraine type G43.919 and Hypothyroidism, unspecified type E03.9 [facility] [address] [place] [id number] [place] [address] Jun, Subacute frontal sinusitis J01.10 [facility] [address] [place] [id number] [place] [address] May, Intractable migraine without status migrainosus, unspecified migraine type G43.919 [facility] [id number], [place] [address] May, Barretts esophagus without dysplasia K22.70 [facility] [id number] [id number] Aug, IMMUNIZATIONS No Known Immunizations SOCIAL HISTORY Never Assessed REASON FOR VISIT Requests return call PLAN OF CARE VITAL SIGNS MEDICATIONS Unknown Medications RESULTS No Results PROCEDURES No Known procedures INSTRUCTIONS MEDICATIONS ADMINISTERED No Known Medications MEDICAL [...]
--- OUTSIDE RECORDS SUMMARY | 2017-10-15 10:16 | XMS REPORT ---
Author Author ROLAND AN Organization [facility] Address [address] [place] [address] Care Team Providers Care Line Fixer Name Role Phone ROLAND AN Unavailable PROBLEMS Type Condition ICD9-CM Code [id number] Code Onset Dates Condition Status SNOMED Code Problem Anxiety about health F41.8 Active 097153559 Problem Anxiety F41.9 Active 66823625 Problem History of autoimmune disease Z86.2 Active 945291461 Problem Barretts esophagus without dysplasia K22.70 Active 198524657 Problem Hypothyroidism, unspecified type E03.9 Active 21548817 Problem Intractable migraine without status migrainosus, unspecified migraine type G43.919 Active 861646050 Problem Other chronic pain G89.29 Active 47577609 Problem Lumbago with sciatica, left side M54.42 Active 488932505 Problem Cardiac arrhythmia, unspecified cardiac arrhythmia type I49.9 Active 168714931 Problem Chronic GERD K21.9 Active 006542724 Problem Moderate persistent asthma with exacerbation J45.41 Active 914787788 Problem Essential hypertension I10 Active 12099358 ALLERGIES No Information ENCOUNTERS Encounter Location Date Diagnosis [facility] [address], [place] [address] Jul, [facility] [address] [place] [address] Jul, [facility] [address], [place] [address] Jul, [facility] [address] [place] [id number] [place] [address]07[address] 14 Jul, 2017 [facility] [address], [place] [address] Jul, Essential hypertension I10 ; Intractable migraine without status migrainosus, unspecified migraine type G43.919 ; Anxiety F41.9 ; Cardiac arrhythmia, unspecified cardiac arrhythmia type I49.9 ; Moderate persistent asthma with exacerbation J45.41 ; High risk medication use Z79.899 ; Controlled substance agreement signed Z79.899 ; Barretts esophagus without dysplasia K22.70 ; Lumbago with sciatica, left side M54.42 and Other chronic pain G89.29 [place] [address] [address] 16 Jun, 2017 Anxiety F41.9 [place] [address] [address] 01 Jun, 2017 Lumbago with sciatica, left side M54.42 ; Other chronic pain G89.29 and Moderate persistent asthma with exacerbation J45.41 [facility] [address] [address] 18 May, 2017 Cough R05 ; Nausea R11.0 and Viral URI J06.9 [facility] [address] [address] 15 May, 2017 Viral URI J06.9 [facility] [address] [address] May, Sore throat J02.9 and Acute suppurative otitis media of left ear without spontaneous rupture of tympanic membrane, recurrence not specified H66.002 [place] [address] [address] Apr, Chest pain, unspecified type R07.9 ; Dizziness R42 ; Essential hypertension I10 and Tobacco use Z72.0 [place] [address] [address] Mar, [place] [address] [address] Mar, [place] [address] [address]686 Mar, Cough R05 ; Sore throat J02.9 ; Other viral agents as the cause of diseases classified elsewhere B97.89 and Acute sinusitis, unspecified J01.90 [facility] [address], [place] [address] Feb, Palpitations R00.2 [facility] [address] [place] [id number] [place] [address] Feb, Intractable migraine without status migrainosus, unspecified migraine type G43.919 [facility] [address] [place] [id number] [place] [address]683- 0267 Feb, [facility] [address] [place] [address] [id number] [place] [address]57- 3951 Jan, Cough R05 ; Cardiac arrhythmia, unspecified cardiac arrhythmia type I49.9 ; Chronic seasonal allergic rhinitis due to other allergen J30.2 ; Chronic GERD K21.9 ; Anxiety F41.9 and Hypothyroidism, unspecified type E03.9 [facility] [address], [place] [address] Jan, Acute cystitis with hematuria N30.01 [facility] [address] [place] [id number] [place] [address] Dec, [facility] [address] [place] [id number] [place] [address] Nov, Anxiety F41.9 and Costochondral chest pain R07.1 [facility] [address] [place] [id number] [place] [address] Nov, [facility] [address] [place] [id number] [place] [address] Nov, Hypothyroidism, unspecified type E03.9 and Anxiety F41.9 [facility] [place] [id number] [place] [id number] Nov, Anxiety about health F41.8 [facility] [address] [place] [id number] [place] [address] 09 Oct, 2016 STD exposure Z20.2 and Anxiety F41.9 [facility] [address] [place] [id number] [place] [address] September, Anxiety disorder, unspecified type F41.9 [facility] [address] [place] [id number] [place] [address] September, Anxiety about health F41.8 [facility] [address] [place] [id number] [place] [address] Aug, History of autoimmune disease Z86.2 and Hypothyroidism , unspecified type E03.9 [facility] [address] [place] [id number] [place] [address] Aug, Anxiety about health F41.8 and Bilateral serous otitis media, unspecified chronicity H65.93 [facility] [address] [place] [id number] [place] [address] Jul, Anxiety about health F41.8 [facility] [address] [place] [id number] [place] [address] Jun, Low back sprain, initial encounter S33.9XXA [facility] [address] [place] [id number] [place] [address] 24 Jun, 2016 Barretts esophagus without dysplasia K22.70 ; Intractable migraine without status migrainosus, unspecified migraine type G43.919 and Hypothyroidism, unspecified type E03.9 [facility] [address] [place] [id number] [place] [address] 09 Jun, 2016 Subacute frontal sinusitis J01.10 [facility] [address] [place] [id number] [place] [address] May, Intractable migraine without status migrainosus, unspecified migraine type G43.919 [facility] [address] [place] [address] May, Barretts esophagus without dysplasia K22.70 [facility] [place] [address] [facility] [id number] [place] [id number] Aug, IMMUNIZATIONS No Known Immunizations SOCIAL HISTORY Never Assessed REASON FOR VISIT Faxed refill request PLAN OF CARE VITAL SIGNS MEDICATIONS Medication [...]
--- OUTSIDE RECORDS SUMMARY | 2017-10-15 10:16 | XMS REPORT ---
Author Author MARITZA AN [facility] Address [address] [place] [address] Care Team Providers Care Glass Cleaner Name Role Phone ANMARITZA Unavailable PROBLEMS Type Condition ICD9-CM Code FMW24-BQ Code Onset Dates Condition Status SNOMED Code Problem Anxiety about health F41.8 Active 259931251 Problem Anxiety F41.9 Active 98046761 Problem History of autoimmune disease Z86.2 Active 067519772 Problem Barretts esophagus without dysplasia K22.70 Active 914300962 Problem Hypothyroidism, unspecified type E03.9 Active 71304559 Problem Intractable migraine without status migrainosus, unspecified migraine type G43.919 Active 597030864 Problem Other chronic pain G89.29 Active 93427348 Problem Lumbago with sciatica, left side M54.42 Active 392524613 Problem Cardiac arrhythmia, unspecified cardiac arrhythmia type I49.9 Active 754372521 Problem Chronic GERD K21.9 Active 510034600 Problem Moderate persistent asthma with exacerbation J45.41 Active 506958034 Problem Essential hypertension I10 Active 43762399 ALLERGIES No Information ENCOUNTERS Encounter Location Date Diagnosis [facility] [id number] [place] [address] Jul, Cough R05 and Acute bronchitis, unspecified organism J20.9 [facility] [id number] [place] [address] Jul, Other chronic pain G89.29 [facility] [id number] [place] [address] Jul, Essential hypertension I10 [facility] [id number] [place] [address] 7931 Jul, [facility] [id number] [place] [address]66[address]681 Jul, [place] [address] [address] Jul, Essential hypertension I10 ; Intractable migraine without status migrainosus, unspecified migraine type G43.919 ; Anxiety F41.9 ; Cardiac arrhythmia, unspecified cardiac arrhythmia type I49.9 ; Moderate persistent asthma with exacerbation J45.41 ; High risk medication use Z79.899 ; Controlled substance agreement signed Z79.899 ; Barretts esophagus without dysplasia K22.70 ; Lumbago with sciatica, left side M54.42 and Other chronic pain G89.29 [place] [address] [address] 16 Jun, 2017 Anxiety F41.9 [place] [address] [address] Jun, Lumbago with sciatica, left side M54.42 ; Other chronic pain G89.29 and Moderate persistent asthma with exacerbation J45.41 [facility] [address] [address] May, Cough R05 ; Nausea R11.0 and Viral URI J06.9 [facility] [address] [address] 15 May, 2017 Viral URI J06.9 [facility] [address] [address] May, Sore throat J02.9 and Acute suppurative otitis media of left ear without spontaneous rupture of tympanic membrane, recurrence not specified H66.002 [place] [address] [address] Apr, Chest pain, unspecified type R07.9 ; Dizziness R42 ; Essential hypertension I10 and Tobacco use Z72.0 [place] [address] [address] Mar, [place] [id number] [place] [address]- [address]31 Mar, [place] [address] [address] Mar, Cough R05 ; Sore throat J02.9 ; Other viral agents as the cause of diseases classified elsewhere B97.89 and Acute sinusitis, unspecified J01.90 [facility] [address] [address] Feb, Palpitations R00.2 [facility] [id number] [place] [address] Feb, Intractable migraine without status migrainosus, unspecified migraine type G43.919 [place] [id number] [place] [address] Feb, [place] [address] [address] Jan, Cough R05 ; Cardiac arrhythmia, unspecified cardiac arrhythmia type I49.9 ; Chronic seasonal allergic rhinitis due to other allergen J30.2 ; Chronic GERD K21.9 ; Anxiety F41.9 and Hypothyroidism, unspecified type E03.9 [facility] [id number] [place] [address] 13 Jan, 2017 Acute cystitis with hematuria N30.01 [facility] [address] [place] [id number] [place] [address] Dec, [facility] [address] [place] [id number] [place] [address] Nov, Anxiety F41.9 and Costochondral chest pain R07.1 [facility] [address] [place] [id number] [place] [address] Nov, [facility] [address] [place] [id number] [place] [address] Nov, Hypothyroidism, unspecified type E03.9 and Anxiety F41.9 [facility] [id number] [id number] 07 Nov, 2016 Anxiety about health F41.8 [facility] [id number], [place] [address] 09 Oct, 2016 STD exposure Z20.2 and Anxiety F41.9 [facility] [address] [place] [id number] [place] [address] September, Anxiety disorder, unspecified type F41.9 [facility] [address] [place] [id number] [place] [address] September, Anxiety about health F41.8 [facility] [id number] [place] [address] Aug, History of autoimmune disease Z86.2 and Hypothyroidism , unspecified type E03.9 [facility] [id number] [place] [address] Aug, Anxiety about health F41.8 and Bilateral serous otitis media, unspecified chronicity H65.93 [facility] [id number] [place] [address] 06 Jul, 2016 Anxiety about health F41.8 [facility] [id number], [place] [address] Jun, Low back sprain, initial encounter S33.9XXA [facility] [id number], [place] [address] Jun, Barretts esophagus without dysplasia K22.70 ; Intractable migraine without status migrainosus, unspecified migraine type G43.919 and Hypothyroidism, unspecified type E03.9 [facility] [id number], [place] [address] 09 Jun, 2016 Subacute frontal sinusitis J01.10 [facility] [id number] [place] [address] May, Intractable migraine without status migrainosus, unspecified migraine type G43.919 [facility] [address] [id number] [place] [address] May, Barretts esophagus without dysplasia K22.70 [facility] [place] [address] [facility] [id number] [id number] Aug, IMMUNIZATIONS No Known Immunizations SOCIAL HISTORY Never Assessed REASON FOR VISIT trouble breathing Momo RN PLAN OF CARE VITAL SIGNS MEDICATIONS No Known Medications RESULTS No Results PROCEDURES No Known [...]
--- OUTSIDE RECORDS SUMMARY | 2017-10-15 10:17 | XMS REPORT ---
Author Author LONG ROGERS Organization [facility] [place] Address [address] [place] [address] Care Team Providers Care Java Golden Gate Developer Name Role Phone LONG ROGERS Unavailable PROBLEMS Type Condition ICD9-CM Code SIA86-US Code Onset Dates Condition Status SNOMED Code Problem History of autoimmune disease Z86.2 Active 051383615 Problem Chronic GERD K21.9 Active 094472380 Problem Anxiety F41.9 Active 93737143 Problem Barretts esophagus without dysplasia K22.70 Active 740208282 Problem Hypothyroidism, unspecified type E03.9 Active 32465563 Problem Intractable migraine without status migrainosus, unspecified migraine type G43.919 Active 072377655 Problem Anxiety about health F41.8 Active 730596029 Problem Environmental allergies Z91.09 Active 220684875 Problem Other chronic pain G89.29 Active 69088662 Problem Essential hypertension I10 Active 23645459 Problem Cardiac arrhythmia, unspecified cardiac arrhythmia type I49.9 Active 512894907 Problem Lumbago with sciatica, left side M54.42 Active 964181960 Problem Moderate persistent asthma with exacerbation J45.41 Active 692179271 ALLERGIES Substance Reaction Event Type Date Status Latex itching Drug Allergy Jan, Active Sulfur nausea Drug Allergy Jan, Active Phenergan anaphylaxis Drug Allergy Jan, Active Penicillin V Potassium itching Drug Allergy Jan, Active ENCOUNTERS Encounter Location Date Diagnosis [facility] [place] [address] [facility] [id number] [address] September, [facility] [place] [address] [place] [id number] [address] Aug, [facility] [place] [address] [facility] [id number] [address] Aug, Essential hypertension I10 ; Moderate persistent asthma with exacerbation J45.41 ; Lumbago with sciatica, left side M54.42 and Environmental allergies Z91.09 [facility] [address] [place] [id number] [place] [address] Aug, Environmental allergies Z91.09 and Cough R05 [place] [address] [place] [id number] [place] [address] Aug, Anxiety F41.9 [facility] [address] [address] Jul, Cough R05 and Acute bronchitis, unspecified organism J20.9 [place] [id number] [place] [address] Jul, Other chronic pain G89.29 [place] [address] [place] [address] [id number] [place] [address] Jul, Essential hypertension I10 [place] [address] [address] Jul, [place] [address] [place] [address] [id number] [place] [address] Jul, [place] [address] [place] [address] [id number] [place] [address] Jul, Essential hypertension I10 ; Intractable migraine without status migrainosus, unspecified migraine type G43.919 ; Anxiety F41.9 ; Cardiac arrhythmia, unspecified cardiac arrhythmia type I49.9 ; Moderate persistent asthma with exacerbation J45.41 ; High risk medication use Z79.899 ; Controlled substance agreement signed Z79.899 ; Barretts esophagus without dysplasia K22.70 ; Lumbago with sciatica, left side M54.42 and Other chronic pain G89.29 [place] [id number] [place] [address] Jun, Anxiety F41.9 [place] [id number] [place] [address] Jun, Lumbago with sciatica, left side M54.42 ; Other chronic pain G89.29 and Moderate persistent asthma with exacerbation J45.41 [facility] [place] [address] [address] May, Cough R05 ; Nausea R11.0 and Viral URI J06.9 [facility] [address] [address] May, Viral URI J06.9 [facility] [place] [address] [address] May, Sore throat J02.9 and Acute suppurative otitis media of left ear without spontaneous rupture of tympanic membrane, recurrence not specified H66.002 [place] [address] [address] Apr, Chest pain, unspecified type R07.9 ; Dizziness R42 ; Essential hypertension I10 and Tobacco use Z72.0 [place] [address] [address] Mar, [place] [address] [address] Mar, [address] [address] Mar, Cough R05 ; Sore throat J02.9 ; Other viral agents as the cause of diseases classified elsewhere B97.89 and Acute sinusitis, unspecified J01.90 [place] [address] [address] Feb, Palpitations R00.2 [facility] [address] [address] Feb, Intractable migraine without status migrainosus, unspecified migraine type G43.[address] [address] Feb, [place] [address] [place] [id number] Jan, 2017 Cough R05 ; Cardiac arrhythmia, unspecified cardiac arrhythmia type I49.9 ; Chronic seasonal allergic rhinitis due to other allergen J30.2 ; Chronic GERD K21.9 ; Anxiety F41.9 and Hypothyroidism, unspecified type E03.9 [facility] [address] [id number] [address] Jan, 2017 Acute cystitis with hematuria N30.01 [facility] [address] [id number] [address] 17 Dec, 2016 [facility] [address] [place] [id number] [place] [address] Nov, Anxiety F41.9 and Costochondral chest pain R07.1 [facility] [address] [place] [id number] [place] [address] 17 Nov, 2016 [facility] [address] [place] [id number] [place] [address] Nov, Hypothyroidism, unspecified type E03.9 and Anxiety F41.9 [facility] [id number] [place] [id number] Nov, Anxiety about health F41.8 [facility] [address] [place], [id number] [address] Oct, STD exposure Z20.2 and Anxiety F41.9 [facility] [address] [place], [place] [id number] [place] [address] September, Anxiety disorder, unspecified type F41.9 [facility] [address] [place], [place] [id number] [place] [address] September, Anxiety about health F41.8 [facility] [address] [place], [place] [id number] [place] [address] Aug, History of autoimmune disease Z86.2 and Hypothyroidism , unspecified type E03.9 [facility] [id number] [address] Aug, Anxiety about health F41.8 and Bilateral serous otitis media, unspecified chronicity H65.93 [facility] [id number] [address] Jul, Anxiety about health F41.8 [facility] [address] [id number] [address] Jun, Low back sprain, initial encounter S33.9XXA [facility] [address] [place] [id number] [place] [address] Jun, Barretts esophagus without dysplasia K22.70 ; Intractable migraine without status migrainosus, unspecified migraine type G43.919 and Hypothyroidism, unspecified type E03.9 [facility] [address] [place] [id number] [place] [address] Jun, Subacute frontal sinusitis J01.10 [facility] [address] [id number] [address] May, Intractable migraine without status migrainosus, unspecified migraine type G43.919 [facility] [id number], [place] [address] May, Barretts esophagus without dysplasia K22.70 [facility] [id number] [place] [id number] Aug, IMMUNIZATIONS No Known Immunizations SOCIAL HISTORY Never Assessed REASON FOR VISIT right flank pain and abdominal pain. just started 1 hour ago. pain is constant and sever...history of kidney stones. unable to void. [email or web address] PLAN OF CARE VITAL SIGNS Height 64 in 2017-02-04 Weight 140.0 lbs 2017-02-04 Temperature 97.9 degrees Fahrenheit 2017-02-04 Heart Rate 72 bpm 2017-02-04 Respiratory Rate 20 2017-02-04 BMI 24.03 kg/m2 2017-02-04 Blood pressure systolic 132 mmHg 2017-02-04 Blood pressure diastolic 82 mmHg 2017-02-04 MEDICATIONS Medication Instructions Dosage Frequency Start Date End Date Duration Status Diltiazem HCl 30 MG Orally Three times a day 1 tablet before meals and at bedtime 8h Active Levothyroxine Sodium 100 MCG Orally Once a day 1 tablet on an empty stomach in the morning 24h 30 days Active Macrobid 100 mg Orally every 12 hrs 1 capsule with food 12h Jan, Jan, 10 days Active Pyridium 100 mg Orally 3 times a day 1 tablet after meals 8h Jan, Jan, 03 days Active Famotidine 40 MG Orally Twice a day 1 tablet as needed 12h Active Klonopin 1 MG Orally PRN 1 tablet Aug, Active RESULTS No Results PROCEDURES Procedure Date Ordered Result Body Site [facility] VISIT ESTABLISHED PATIENT Feb 04, 2017 INSTRUCTIONS MEDICATIONS ADMINISTERED No Known Medications [...]
--- OUTSIDE RECORDS SUMMARY | 2017-10-15 10:18 | XMS REPORT | Continuity of Care Document ---
Demographics Preferred Language Unknown Marital Status Unknown Caodaism Affiliation Unknown Race Unknown Ethnic Group Unknown Author Author [facility] Address Unknown Phone Unavailable Allergies Active Description Code Type Severity Reaction Onset Reported/Identified Relationship to Patient Clinical Status Yes PCN Drug Allergy N/A N/A Yes PHENERGAN [id number] Drug Allergy N/A N/A Yes SULFA Drug Allergy N/A N/A Yes PCN Drug Allergy N/A N/A Yes PHENERGAN [id number] Drug Allergy N/A N/A Yes SULFA Drug Allergy N/A N/A Yes penicillin NKMA N/A N/A 09/06/2015 Yes Phenergan NKMA N/A N/A 09/06/2015 Yes sulfa drugs NKMA N/A N/A 09/06/2015 Yes Penicillins [id number] Drug Allergy Unknown N/A 01/27/2017 Yes Sulfa (Sulfonamide Antibiotics) [id number] Drug Allergy Unknown N/A 2016 Medications Medication Packaging Start Date Stop Date Route Dosage Sig TAMIFLU TAB 05/20/2013 ORAL 10 twice daily ZITHROMAX ORAL 02/05/2015 02/10/2015 ORAL 66 TESSALON PERLES ORAL 02/05/2015 02/15/2015 ORAL [id number] three times daily TRAMADOL HCL ORAL 03/07/2015 03/17/2015 ORAL 2020 every 6 hours PROAIR HFA Inhalation 03/19/2015 Inhalation 8.58.5 every 6 hours ADVAIR DISKUS Inhalation 2014 Inhalation 6060 twice daily OMEPRAZOLE ORAL 03/21/2015 ORAL 3030 daily MEDROL ORAL 03/21/2015 03/26/2015 ORAL 2121 as directed ALBUTEROL SULFATE Inhalation 2014 Inhalation 797368 3 times a day AZITHROMYCIN ORAL 03/22/2015 03/27/2015 ORAL 66 CLINDAMYCIN HCL ORAL 04/02/2015 04/09/2015 ORAL 2828 4 times a day TRAMADOL HCL ORAL 04/24/2015 01/04/2016 ORAL 4040 4 times a day PROZAC ORAL 04/24/2015 ORAL 3030 daily every morning AZITHROMYCIN ORAL 04/24/2015 04/29/2015 ORAL 66 KETOROLAC TROMETHAMINE ORAL 201405/04/2015 ORAL 2020 4 times a day IBUPROFEN ORAL 05/04/2015 05/14/2015 ORAL 3030 3 times a day HYDROXYZINE HCL ORAL 05/04/2015 05/14/2015 ORAL 4040 4 times a day AUGMENTIN ORAL 05/14/2015 06/19/2015 ORAL 1414 twice daily MOBIC ORAL 06/07/2015 ORAL 1010 DAILY CIPRO ORAL 07/20/2015 ORAL [id number] twice daily SUMATRIPTAN SUCCINATE ORAL 2015 ORAL 1515 PREDNISONE ORAL 07/30/2015 08/11/2015 ORAL 4040 DOXYCYCLINE HYCLATE ORAL 201508/09/2015 ORAL [id number] twice daily ZYRTEC ALLERGY ORAL 08/15/2015 08/25/2015 ORAL 1010 daily FLUTICASONE PROPIONATE Nasal 201508/25/2015 Nasal 2020 daily per nostril ZANAFLEX ORAL 09/17/2015 10/15/2015 ORAL 3030 daily in the evening ZANAFLEX ORAL 10/15/2015 01/13/2016 ORAL 9090 daily in the evening CIPRODEX Otic 10/15/2015 10/22/2015 Otic 7.57.5 twice daily TRIAMCINOLONE ACETONIDE EXTERNAL 11/23/2015 EXTERNAL 1515 twice daily LEVOTHYROXINE SODIUM ORAL 201502/11/2016 ORAL 9090 daily PREDNISONE ORAL 11/16/2015 11/28/2015 ORAL 4040 TRIAMCINOLONE ACETONIDE gm 2015 External 60 twice each day TIZANIDINE HCL 11/22/2015 PROZAC 11/22/2015 ORAL LEVOTHYROXINE SODIUM 11/22/2015 HYDROXYZINE HCL 11/22/2015 DOXYCYCLINE HYCLATE 11/22/2015 ORAL 20 twice daily CIPRODEX Otic 11/27/2015 12/04/2015 Otic 7.57.5 twice daily KEFLEX 12/05/2015 Oral 30 three times each day TRAMADOL HCL ORAL 12/25/2015 06/13/2016 ORAL 6060 twice daily PROVERA ORAL 01/03/2016 01/13/2016 ORAL 1010 daily CELEBREX ORAL 02/18/2016 02/28/2016 ORAL [id number] twice daily ZITHROMAX 04/15/2016 ORAL 6 ALBUTEROL SULFATE 04/15/2016 Inhalation 50 every 6 hours AZITHROMYCIN ORAL 05/12/2016 05/17/2016 ORAL 66 TRAMADOL HCL ORAL 05/14/2016 06/13/2016 ORAL 6060 twice daily ZOFRAN ODT 07/23/2016 ORAL 9 3 times a day CLINDAMYCIN HCL 07/23/2016 ORAL 28 4 times a day LEVAQUIN ORAL 08/14/2016 ORAL 1010 daily IBUPROFEN ORAL 10/03/2016 10/13/2016 ORAL 3030 3 times a day DILTIAZEM HCL ORAL 10/03/2016 ORAL 9090 3 times a day CYCLOBENZAPRINE HCL ORAL 201610/13/2016 ORAL [id number] three times daily CLONAZEPAM ORAL 10/03/2016 10/13/2016 ORAL 1010 daily Problems Date Dx Coded Attending Type Code Diagnosis Diagnosed By 08/30/2012 V72.40 EXAMINATION OR TEST UNCONFIRMED 01/27/2017 ALLO COOPER APRN Ot F17.210 NICOTINE DEPENDENCE, CIGARETTES, UNCOMPL 01/27/2017 LALO COOPER APRN Ot J32.9 CHRONIC SINUSITIS, UNSPECIFIED 01/27/2017 LALO COOPER APRN Ot J45.909 UNSPECIFIED ASTHMA, UNCOMPLICATED 01/27/2017 LALO COOPER APRN Ot M06.9 RHEUMATOID ARTHRITIS, UNSPECIFIED 01/27/2017 LALO COOPER APRN Ot R05 COUGH 01/27/2017 LALO COOPER APRN Ot Z87.19 PERSONAL HISTORY OF OTHER DISEASES OF 01/27/2017 LALO COOPER APRN Ot Z90.89 ACQUIRED ABSENCE OF OTHER ORGANS 01/29/2017 LALO COOPER APRN Ot F17.210 NICOTINE DEPENDENCE, CIGARETTES, UNCOMPL 01/29/2017 LALO COOPER APRN Ot J32.9 CHRONIC SINUSITIS, UNSPECIFIED 01/29/2017 LALO COOPER APRN Ot J45.909 UNSPECIFIED ASTHMA, UNCOMPLICATED 01/29/2017 LALO COOPER APRN Ot M06.9 RHEUMATOID ARTHRITIS, UNSPECIFIED 01/29/2017 LALO COOPER APRN Ot R05 COUGH 01/29/2017 LALO COOPER APRN Ot Z87.19 PERSONAL HISTORY OF OTHER DISEASES OF 01/29/2017 LALO COOPER [employer] Ot Z90.89 ACQUIRED ABSENCE OF OTHER ORGANS 03/14/2017 LALO COOPER APRN Ot J45.909 UNSPECIFIED ASTHMA, UNCOMPLICATED 03/14/2017 LALO COOPER APRN Ot M06.9 RHEUMATOID ARTHRITIS, UNSPECIFIED 03/14/2017 LALO COOPER APRN Ot M79.605 PAIN IN LEFT LEG 03/14/2017 LALO COOPER APRN Ot S80.12XA CONTUSION OF LEFT LOWER LEG, INITIAL ENC 03/14/2017 LALO COOPER [employer] Ot W17.89XA OTHER FALL FROM ONE LEVEL TO ANOTHER, IN 03/14/2017 LALO COOPER APRN Ot Z90.89 ACQUIRED ABSENCE OF OTHER ORGANS 03/19/2017 FIFI GATICA STRETCH MACHINE OPERATOR Ot J45.909 UNSPECIFIED ASTHMA, UNCOMPLICATED 03/19/2017 GAVI FIFI STRETCH MACHINE OPERATOR Ot M06.9 RHEUMATOID ARTHRITIS, UNSPECIFIED 03/19/2017 GAVI, FIFI STRETCH MACHINE OPERATOR Ot M35.9 SYSTEMIC INVOLVEMENT OF CONNECTIVE TISSU 03/19/2017 GAVI, FIFI STRETCH MACHINE OPERATOR Ot M94.0 CHONDROCOSTAL JUNCTION SYNDROME [TIETZE] 03/19/2017 GAVI, FIFI STRETCH MACHINE OPERATOR Ot R01.1 CARDIAC MURMUR, UNSPECIFIED 03/19/2017 GAVI FIFI STRETCH MACHINE OPERATOR Ot R07.9 CHEST PAIN, UNSPECIFIED 03/25/2017 GAVI FIFI STRETCH MACHINE OPERATOR Ot J45.909 UNSPECIFIED ASTHMA, UNCOMPLICATED 03/25/2017 GAVI FIFI STRETCH MACHINE OPERATOR Ot M06.9 RHEUMATOID ARTHRITIS, UNSPECIFIED 03/25/2017 GAVI, FIFI STRETCH MACHINE OPERATOR Ot M35.9 SYSTEMIC INVOLVEMENT OF CONNECTIVE TISSU 03/25/2017 GAVI, FIFI STRETCH MACHINE OPERATOR Ot M94.0 CHONDROCOSTAL JUNCTION SYNDROME [TIETZE] 03/25/2017 GAVI, FIFI STRETCH MACHINE OPERATOR Ot R01.1 CARDIAC MURMUR, UNSPECIFIED 03/25/2017 GAVI FIFI STRETCH MACHINE OPERATOR Ot R07.9 CHEST PAIN, UNSPECIFIED 03/25/2017 GAVI FIFI STRETCH MACHINE OPERATOR Ot J45.909 UNSPECIFIED ASTHMA, UNCOMPLICATED 03/25/2017 GAVI, FIFI STRETCH MACHINE OPERATOR Ot M06.9 RHEUMATOID ARTHRITIS, UNSPECIFIED 03/25/2017 GAVI, FIFI STRETCH MACHINE OPERATOR Ot M35.9 SYSTEMIC INVOLVEMENT OF CONNECTIVE TISSU 03/25/2017 FIFI GATICAP Ot M94.0 CHONDROCOSTAL JUNCTION SYNDROME [TIETZE] 03/25/2017 FIFI GATICAP Ot R01.1 CARDIAC MURMUR, UNSPECIFIED 03/25/2017 FIFI GATICA Ot R07.9 CHEST PAIN, UNSPECIFIED 03/31/2017 OK PARIKH DO Ot R00.2 PALPITATIONS 04/26/2017 OK PARIKH DO Ot R00.2 PALPITATIONS 04/26/2017 LALO COOPER APRN Ot J45.909 UNSPECIFIED ASTHMA, UNCOMPLICATED 04/26/2017 LALO COOPER APRN Ot M06.9 RHEUMATOID ARTHRITIS, UNSPECIFIED 04/26/2017 LALO COOPER APRN Ot S90.32XA CONTUSION OF LEFT FOOT, INITIAL ENCOUNTE 04/26/2017 LALO COOPER APRN Ot S99.922A UNSPECIFIED INJURY OF LEFT FOOT, INITIAL 04/26/2017 LALO COOPER APRN Ot W20.8XXA OTH CAUSE OF STRIKE BY THROWN, PROJECTED 04/26/2017 LALO COOPER APRN Ot Y92.[address] [facility] PL[address] IN [facility] NON-INSTITUT (PRIVATE 04/26/2017 LALO COOPER APRN Ot Z87.19 PERSONAL HISTORY OF OTHER DISEASES OF TH 04/26/2017 LALO COOPER APRN Ot Z90.89 ACQUIRED ABSENCE OF OTHER ORGANS 05/19/2017 OK PARIKH DO Ot R00.2 PALPITATIONS 05/22/2017 OK PARIKH DO Ot R00.2 PALPITATIONS 06/28/2017 OK PARIKH DO E Ot R00.2 PALPITATIONS 06/29/2017 OK PARIKH DO E Ot R00.2 PALPITATIONS 07/03/2017 OK PARIKH DO Ot R00.2 PALPITATIONS 07/17/2017 YAMILETH RODRIGUEZ, RENA Aguilar Ot F17.210 NICOTINE DEPENDENCE, CIGARETTES, UNCOMPL 07/17/2017 YAMILETH RODRIGUEZ, RENA Aguilar Ot J45.909 UNSPECIFIED ASTHMA, UNCOMPLICATED 07/17/2017 YAMILETH RODRIGUEZ, RENA Aguilar Ot M06.9 RHEUMATOID ARTHRITIS, UNSPECIFIED 07/17/2017 RENA CARSON MD Ot M47.817 SPONDYLS W/O MYELOPATHY OR RADICULOPATHY 07/17/2017 RENA CARSON MD Ot M54.5 LOW BACK PAIN 07/17/2017 RENA CARSON MD Ot W18.30XA FALL ON SAME LEVEL, UNSPECIFIED, INITIAL 07/17/2017 RENA CARSON MD Ot Z87.19 PERSONAL HISTORY OF OTHER DISEASES OF TH 07/17/2017 RENA CARSON MD Ot Z88.0 ALLERGY STATUS TO PENICILLIN 07/17/2017 RENA CARSON MD Ot Z88.2 ALLERGY STATUS TO SULFONAMIDES STATUS 07/17/2017 RENA CARSON MD Ot Z90.89 ACQUIRED ABSENCE OF OTHER ORGANS 07/17/2017 OK PARIKH DO Ot R00.2 PALPITATIONS 07/20/2017 RENA CARSON MD Ot F17.210 NICOTINE DEPENDENCE, CIGARETTES, UNCOMPL 07/20/2017 RENA CARSON MD Ot J45.909 UNSPECIFIED ASTHMA, UNCOMPLICATED 07/20/2017 RENA CARSON MD Ot M06.9 RHEUMATOID ARTHRITIS, UNSPECIFIED 07/20/2017 RENA CARSON MD Ot M47.817 SPONDYLS W/O MYELOPATHY OR RADICULOPATHY 07/20/2017 RENA CARSON MD Ot M54.5 LOW BACK PAIN 07/20/2017 RENA CARSON MD Ot W18.30XA FALL ON SAME LEVEL, UNSPECIFIED, INITIAL 07/20/2017 RENA CARSON MD Ot Z87.19 PERSONAL HISTORY OF OTHER DISEASES OF TH 07/20/2017 RENA CARSON MD Ot Z88.0 ALLERGY STATUS TO PENICILLIN 07/20/2017 RENA CARSON MD Ot Z88.2 ALLERGY STATUS TO SULFONAMIDES STATUS 07/20/2017 RENA CARSON MD Ot Z90.89 ACQUIRED ABSENCE OF OTHER ORGANS 09/16/2017 OK PARIKH DO Ot R00.2 PALPITATIONS Procedures Code Description [place] [address] URINE TEST (IN- HOUSE) 08/30/2012 Results Test Result Range TSH - 02/10/17 12:31 TSH 4.100 uIU/mL 0.450-4.500 TSH - 02/10/17 12:31 TSH 4.100 uIU/mL 0.450-4.500 Complete blood count (CBC) with automated white blood cell (WBC) differential - 03/19/17 16:45 Blood leukocytes automated count (number/volume) 8.6 10*3/uL 4.3-11.0 Blood erythrocytes automated count (number/volume) 4.11 10*6/uL 4.35-5.85 Venous blood hemoglobin measurement (mass/volume) 13.0 g/dL 11.5-16.0 Blood hematocrit (volume fraction) 36 % 35-52 Automated erythrocyte mean corpuscular volume 88 [foz_us] 80-99 Automated erythrocyte mean corpuscular hemoglobin (mass per erythrocyte) 32 pg 25-34 Automated erythrocyte mean corpuscular hemoglobin concentration measurement ( mass/volume) 36 g/dL 32-36 Automated erythrocyte distribution width ratio 12.7 % 10.0-14.5 Automated blood platelet count (count/volume) 196 10*3/uL 130-400 Automated blood platelet mean volume measurement 10.3 [foz_us] 7.4-10.4 Automated blood neutrophils/100 leukocytes 57 % 42-75 Automated blood lymphocytes/100 leukocytes 36 % 12-44 Blood monocytes/100 leukocytes 5 % 0-12 Automated blood eosinophils/100 leukocytes 2 % 0-10 Automated blood basophils/100 leukocytes 0 % 0-10 Blood neutrophils automated count (number/volume) 4.9 10*3 1.8-7.8 Blood lymphocytes automated count (number/volume) 3.1 10*3 1.0-4.0 Blood monocytes automated count (number/volume) 0.4 10*3 0.0-1.0 Automated eosinophil count 0.1 10*3/uL 0.0-0.3 Automated blood basophil count (count/volume) 0.0 10*3/uL 0.0-0.1 PT panel in platelet poor plasma by coagulation assay - 03/19/17 16:45 Prothrombin time (PT) in platelet poor plasma by coagulation assay 12.9 s 12.2-14.7 INR in platelet poor plasma or blood by coagulation assay 1.0 0.8-1.4 Activated partial thromboplastin time (aPTT) in platelet poor plasma bycoagulation assay - 03/19/17 16:45 Activated partial thromboplastin time (aPTT) in platelet poor plasma bycoagulation assay 28 s 24-35 Comprehensive metabolic panel - 03/19/17 16:45 Serum or plasma sodium measurement (moles/volume) 140 mmol/L 135-145 Serum or plasma potassium measurement (moles/volume) 3.4 mmol/L 3.6-5.0 Serum or plasma chloride measurement (moles/volume) 107 mmol/L 98-107 Carbon dioxide 26 mmol/L 21-32 Serum or plasma anion gap determination (moles/volume) 7 mmol/L 5-14 Serum or plasma urea nitrogen measurement (mass/volume) 12 mg/dL 7-18 Serum or plasma creatinine measurement (mass/volume) 0.74 mg/dL 0.60-1.30 Serum or plasma urea nitrogen/creatinine mass ratio 16 NRG Serum or plasma creatinine measurement with calculation of estimated glomerular filtration rate > NRG Serum or plasma glucose measurement (mass/volume) 104 mg/dL 70-105 Serum or plasma calcium measurement (mass/volume) 9.0 mg/dL 8.5-10.1 Serum or plasma total bilirubin measurement (mass/volume) 0.6 mg/dL 0.1-1.0 Serum or plasma alkaline phosphatase measurement (enzymatic activity/volume) 58 U/L 40-136 Serum or plasma aspartate aminotransferase measurement (enzymatic activity/ volume) 14 U/L 5-34 Serum or plasma alanine aminotransferase measurement (enzymatic activity/volume ) 13 U/L 0-55 Serum or plasma protein measurement (mass/volume) 6.4 g/dL 6.4-8.2 Serum or plasma albumin measurement (mass/volume) 3.8 g/dL 3.2-4.5 Magnesium - 03/19/17 16:45 Magnesium 1.8 mg/dL 1.8-2.4 Erythrocyte sedimentation rate by westergren method - 03/19/17 16:45 Erythrocyte sedimentation rate by westergren method 7 mm 0-20 Myoglobin, serum - 03/19/17 16:45 Myoglobin, serum 25.1 ng/mL 10.0-92.0 Serum or plasma troponin i.cardiac measurement (mass/volume) - 03/19/17 16:45 Serum or plasma troponin i.cardiac measurement (mass/volume) < ng/ mL <0.30 Myoglobin, serum - 03/19/17 16:45 Myoglobin, serum 25.1 ng/mL 10.0-92.0 Complete urinalysis with reflex to culture - 07/17/17 17:45 Urine color determination YELLOW NRG Urine clarity determination CLEAR NRG Urine pH measurement by test strip 7 5-9 Specific gravity of urine by test strip 1.010 1.016- 1.022 Urine protein assay by test strip, semi-quantitative NEGATIVE NEGATIVE Urine glucose detection by automated test strip NEGATIVE NEGATIVE Erythrocytes detection in urine sediment by light microscopy NEGATIVE NEGATIVE Urine ketones detection by automated test strip NEGATIVE NEGATIVE Urine nitrite detection by test strip NEGATIVE NEGATIVE Urine total bilirubin detection by test strip NEGATIVE NEGATIVE Urine urobilinogen measurement by automated test strip (mass/volume) NORMAL NORMAL Urine leukocyte esterase detection by dipstick 1+ NEGATIVE Automated urine sediment erythrocyte count by microscopy (number/high power field) NONE NRG Automated urine sediment leukocyte count by microscopy (number/high power field ) [HPF] NRG Bacteria detection in urine sediment by light microscopy NEGATIVE NRG Squamous epithelial cells detection in urine sediment by light microscopy 5-10 NRG Crystals detection in urine sediment by light microscopy NONE NRG Casts detection in urine sediment by light microscopy NONE NRG Mucus detection in urine sediment by light microscopy NEGATIVE NRG Complete urinalysis with reflex to culture NO NRG Encounters ACCT No. Visit Date/Time Discharge Status Pt. Type Provider Facility Loc./Unit Complaint [id number] 08/30/2012 08:45:00 Document Registration [id number] 09/11/2017 09:40:00 09/11/2017 23:59:59 CLS Outpatient ANUEL POP [facility] [id number] 02/10/2017 11:30:00 Document Registration [id number] 05/15/2017 17:32:06 05/15/2017 17:32:07 DIS Outpatient [facility] [id number] 09/06/2015 08:06:00 09/06/2015 23:59:00 DIS Outpatient Milady Phillip [facility] Mur Rheum NPV: polymyocaias/Medicare/ ref: Nathaniel [id number] 12/05/2015 14:35:12 Document Registration [id number] 12/05/2015 14:35:11 Document Registration [id number] 12/05/2015 14:35:10 Document Registration [id number] 12/05/2015 14:35:09 Document Registration [id number] 12/05/2015 14:35:08 Document Registration [id number] 12/05/2015 14:35:07 Document Registration [id number] 12/05/2015 14:35:06 Document Registration [id number] 12/05/2015 14:35:05 Document Registration [id number] 12/05/2015 14:35:03 Document Registration [id number] 12/05/2015 14:19:35 Document Registration [id number] 12/05/2015 14:19:20 Document Registration [id number] 12/05/2015 14:18:00 Document Registration [id number] 11/22/2015 12:11:59 Document Registration [id number] 11/22/2015 12:11:58 Document Registration [id number] 11/22/2015 12:11:57 Document Registration [id number] 11/22/2015 12:11:55 Document Registration [id number] 11/22/2015 12:11:54 Document Registration [id number] 11/22/2015 12:11:53 Document Registration [id number] 11/22/2015 12:11:52 Document Registration [id number] 11/22/2015 12:11:51 Document Registration [id number] 11/22/2015 12:11:50 Document Registration [id number] 11/22/2015 12:11:49 Document Registration [id number] 11/22/2015 12:11:48 Document Registration [id number] 11/22/2015 11:56:05 Document Registration [id number] 11/22/2015 11:56:04 Document Registration [id number] 11/22/2015 11:56:02 Document Registration [id number] 11/22/2015 11:56:01 Document Registration [id number] 11/22/2015 11:56:00 Document Registration [id number] 11/22/2015 11:55:59 Document Registration [id number] 11/15/2015 09:16:21 Document Registration [id number] 11/15/2015 07:07:19 Document Registration [id number] 11/15/2015 06:37:00 Document Registration [id number] 02/11/2017 08:42:00 Document Registration [id number] 09/11/2017 12:00:00 09/11/2017 23:59:59 CLS Preadmit ANUEL POP [employer] [facility] RAD LUMBAGO W/ SCIATICA LEFT SIDE [id number] 07/17/2017 17:23:00 07/17/2017 18:38:00 DIS Emergency RENA CARSON MD [facility] ER LOWER BACK PAIN [id number] 06/29/2017 11:00:00 06/29/2017 23:59:59 CLS Preadmit JL SUMMERS OK E [facility] CARD R00.2 PALPITATIONS [id number] 03/30/2017 11:14:00 06/28/2017 00:01:00 DIS Outpatient AFRICANIGEORGIA SUMMERS [place] E [facility] CARD R00.2 PALPITATIONS [id number] 05/04/2017 11:30:00 05/04/2017 23:59:59 CLS Preadmit SHEYLA BOB MD [facility] CARD CHEST PAIN [id number] 04/26/2017 20:51:00 04/26/2017 21:33:00 DIS Emergency LALO COOPER [employer] [facility] ER L FOOT INJ [id number] 03/19/2017 16:39:00 03/19/2017 19:34:00 DIS Emergency FIFI GATICA STRETCH MACHINE OPERATOR [facility] ER CHEST PAIN;SOA [id number] 03/14/2017 14:55:00 03/14/2017 16:11:00 DIS Emergency LALO COOPER [employer] [facility] ER L HIP NUMBNESS [id number] 01/27/2017 13:39:00 01/27/2017 14:18:00 DIS Emergency LALO COOPER [employer] [facility] ER COUGH/CONGESTION/FEVER/ BODY ACHE/COLD [id number] 03/25/2015 06:08:00 03/25/2015 06:08:01 DIS Outpatient
--- NOTE | 2017-10-15 10:38 | ED Chest Pain ---
General Chief Complaint: Chest Pain Stated Complaint: CP Source: patient Exam Limitations: no limitations History of Present Illness Date Seen by Provider: October 15, 2017 Time Seen by Provider: 10:35 Initial Comments to ER with reports of chest pain. She states that she's had nausea for the past 2-3 days. Starting this morning at 3 AM she developed some diffuse abdominal pain that radiated up to the left side of her chest. She also reports intermittent left arm numbness for the past 2-3 days. However, the chest pain only started today but has been present since3 AM when it awakened her. No shortness of breath. She is a smoker. Mother had coronary stentingin her late 50s.Patient reports a history of mitral valve prolapse, pericarditis, Timing/Duration: 2-3 days Severity/Quality: moderate Location: central Radiation: no radiation Activities at Onset: none ASA po MARKETING FINANCE MANAGER: No NTG SL MARKETING FINANCE MANAGER: No Associated Symptoms: nausea/vomiting Allergies and Home Medications Allergies Coded Allergies: Penicillins (Verified Allergy, Unknown, 01/27/17) Sulfa (Sulfonamide Antibiotics) (Verified Allergy, Unknown, 01/27/17) Patient Home Medication List Home Medication List Reviewed: Yes Review of Systems Constitutional: see HPI EENTM: No Symptoms Reported Respiratory: No Symptoms Reported; Denies Shortness of Air (he was at all really initially went) Cardiovascular: See HPI, Chest Pain Gastrointestinal: See HPI, Abdominal Pain Genitourinary: No Symptoms Reported Skin: no symptoms reported Psychiatric/Neurological: No Symptoms Reported Endocrine: No Symptoms Reported Hematologic/Lymphatic: No Symptoms Reported Past Tzfoior-Sxsqhc-Ifrjep Hx Patient Social History Type Used: Electronic/Vapor 2nd Hand Smoke Exposure: No Recent Foreign Travel: No Contact w/Someone Who Travel: No Recent Hopitalizations: No Seasonal Allergies Seasonal Allergies: No Past Medical History Surgeries: Yes (hernia, dental, esophagial, port, d&c) Adenoidectomy, Ear Surgery, Gallbladder, Tonsillectomy Asthma Cardiac: Yes Heart Murmur Neurological: No Genitourinary: No Gastrointestinal: No Musculoskeletal: Yes Rheumatoid Arthritis Endocrine: No HEENT: No Cancer: No Psychosocial: No Integumentary: No Blood Disorders: No Physical Exam Vital Signs Capillary Refill : General Appearance: No Apparent Distress, WD/WN HEENT: PERRL/EOMI, TMs Normal Neck: Full Range of Motion, Normal Inspection Respiratory: Normal Breath Sounds, No Accessory Muscle Use, No Respiratory Distress Cardiovascular: Regular Rate, Rhythm, Normal Peripheral Pulses Gastrointestinal: Normal Bowel Sounds, Non Tender, Soft; No Abnormal Bowel Sounds, No Distended, No Guarding, No Hepatomegaly, No Tenderness; Other (no tenderness or c/o abdominal pain currently. ) Extremity: Normal Capillary Refill, Normal Inspection Neurologic/Psychiatric: Alert, Oriented x3 Skin: Normal Color, Warm/Dry Progress/Results/Core Measures Results/Orders Lab Results Laboratory Tests Test 10/15/17 10:32 10/15/17 10:58 Range/Units White Blood Count 9.3 4.3-11.0 10^3/uL Red Blood Count 4.05 L 4.35-5.85 10^6/uL Hemoglobin 12.7 11.5-16.0 G/DL Hematocrit 35 35-52 % Mean Corpuscular Volume 87 80-99 FL Mean Corpuscular Hemoglobin 31 25-34 PG Mean Corpuscular Hemoglobin Concent 36 32-36 G/DL Red Cell Distribution Width 12.9 10.0-14.5 % Platelet Count 164 130-400 10^3/uL Mean Platelet Volume 9.7 7.4-10.4 FL Neutrophils (%) (Auto) 83 H 42-75 % Lymphocytes (%) (Auto) 9 L 12-44 % Monocytes (%) (Auto) 6 0-12 % Eosinophils (%) (Auto) 1 0-10 % Basophils (%) (Auto) 0 0-10 % Neutrophils # (Auto) 7.8 1.8-7.8 X 10^3 Lymphocytes # (Auto) 0.9 L 1.0-4.0 X 10^3 Monocytes # (Auto) 0.6 0.0-1.0 X 10^3 Eosinophils # (Auto) 0.1 0.0-0.3 10^3/uL Basophils # (Auto) 0.0 0.0-0.1 10^3/uL Prothrombin Time 13.9 12.2-14.7 SEC INR Comment 1.1 0.8-1.4 Activated Partial Thromboplast Time 28 24-35 SEC Sodium Level 141 135-145 MMOL/L Potassium Level 3.5 L 3.6-5.0 MMOL/L Chloride Level 110 H 98-107 MMOL/L Carbon Dioxide Level 24 21-32 MMOL/L Anion Gap 7 5-14 MMOL/L Blood Urea Nitrogen 14 7-18 MG/DL Creatinine 0.62 0.60-1.30 MG/DL Estimat Glomerular Filtration Rate > 60 BUN/Creatinine Ratio 23 Glucose Level 91 70-105 MG/DL Calcium Level 8.7 8.5-10.1 MG/DL Magnesium Level 1.6 L 1.8-2.4 MG/DL Total Bilirubin 1.1 H 0.1-1.0 MG/DL Aspartate Amino Transf (AST/SGOT) 33 5-34 U/L Alanine Aminotransferase (ALT/SGPT) 21 0-55 U/L Alkaline Phosphatase 44 40-136 U/L Myoglobin 17.7 10.0-92.0 NG/ML Troponin I < 0.30 <0.30 NG/ML Total Protein 5.8 L 6.4-8.2 GM/DL Albumin 3.6 3.2-4.5 GM/DL Lipase 32 8-78 U/L Urine Color YELLOW Urine Clarity CLEAR Urine pH 6 5-9 Urine Specific [place] 1.025 H 1.016-1.022 Urine Protein NEGATIVE NEGATIVE Urine Glucose (UA) NEGATIVE NEGATIVE Urine Ketones NEGATIVE NEGATIVE Urine Nitrite NEGATIVE NEGATIVE Urine Bilirubin NEGATIVE NEGATIVE Urine Urobilinogen 1 NORMAL MG/DL Urine Leukocyte Esterase 2+ H NEGATIVE Urine RBC (Auto) 1+ H NEGATIVE Urine RBC 5-10 H /HPF Urine WBC 10-25 H /HPF Urine Squamous Epithelial Cells 10-25 H /HPF Urine Crystals NONE /LPF Urine Bacteria TRACE /HPF Urine Casts NONE /LPF Urine Mucus LARGE H /LPF Urine Culture Indicated YES Urine Opiates Screen NEGATIVE NEGATIVE Urine Oxycodone Screen NEGATIVE NEGATIVE Urine Methadone Screen NEGATIVE NEGATIVE Urine Propoxyphene Screen NEGATIVE NEGATIVE Urine Barbiturates Screen NEGATIVE NEGATIVE Ur Tricyclic Antidepressants Screen NEGATIVE NEGATIVE Urine Phencyclidine Screen NEGATIVE NEGATIVE Urine Amphetamines Screen NEGATIVE NEGATIVE Urine Methamphetamines Screen NEGATIVE NEGATIVE Urine Benzodiazepines Screen NEGATIVE NEGATIVE Urine Cocaine Screen NEGATIVE NEGATIVE Urine Cannabinoids Screen NEGATIVE NEGATIVE My Orders Orders - LALO COOPER APRN Cbc With Automated Diff (10/15/17 10:25) Magnesium (10/15/17 10:25) Chest 1 View, Ap/Pa Only (10/15/17 10:25) Ekg Tracing (10/15/17 10:25) Cardiac Profile 1 (10/15/17 10:25) Comprehensive Metabolic Panel (10/15/17 10:25) Myoglobin Serum (10/15/17 10:25) Protime With Inr (10/15/17 10:25) Partial Thromboplastin Time (10/15/17 10:25) O2 (10/15/17 10:25) Monitor-Rhythm Ecg Trace Only (10/15/17 10:25) Lipid Panel (10/16/17 06:00) Aspirin Chewable Tablet (Baby Aspirin Ch (10/15/17 10:30) Saline Lock/Iv-Start (10/15/17 10:25) Ua Culture If Indicated (10/15/17 10:34) Urine Bedside (10/15/17 10:34) Lipase (10/15/17 10:34) Antacid Suspension (Mylanta Suspension (10/15/17 10:45) Lidocaine 2% Viscous 15 Ml (Xylocaine Vi (10/15/17 10:45) Ondansetron Injection (Zofran Injectio (10/15/17 10:45) Drug Screen Stat (Urine) (10/15/17 11:09) Urine Culture (10/15/17 10:58) Hydrocodone/Apap 5/325 Tablet (Lortab 5 (10/15/17 11:45) Medications Given in ED Current Medications Medications Dose Ordered Sig/Michelle Route Start Time Stop Time Status Last Admin Dose Admin Acetaminophen/ Hydrocodone Bitart 1 tab ONCE ONCE PO 10/15/17 11:45 10/15/17 11:46 DC 10/15/17 11:54 1 TAB Al Hydrox/Mg Hydrox/Simethicone 30 ml ONCE ONCE PO 10/15/17 10:45 10/15/17 10:46 DC 10/15/17 10:48 30 ML Aspirin 324 mg ONCE ONCE PO 10/15/17 10:30 10/15/17 10:31 DC 10/15/17 10:48 324 MG Lidocaine HCl 15 ml ONCE ONCE PO 10/15/17 10:45 10/15/17 10:46 DC 10/15/17 10:48 15 ML Ondansetron HCl 4 mg ONCE ONCE IVP 10/15/17 10:45 10/15/17 10:46 DC 10/15/17 10:47 4 MG Diagnostic Imaging Diagonstic Imaging: Xray Plain Films/CT/US/NM/MRI: chest Comments NAME: [facility] REC#: [id number] PT STATUS: REG ER : 1980 PHYSICIAN: LALO COOPER APRN ADMIT DATE: 10/15/17/ER Draft Date of Exam:10/15/17 CHEST 1 VIEW, AP/PA ONLY INDICATION: Chest pain. Time of exam: 10:45 AM Comparison is made with prior chest from 03/19/2017. Left chest wall port has tip overlying the SVC. Lungs are clear. The pulmonary vascularity is normal. No infiltrate, effusion or pneumothorax is seen. IMPRESSION: No acute cardiopulmonary process is detected. Dictated on workstation # [id number] Dict: 10/15/17 1049 Trans: 10/15/17 1053 [facility] [id number] Interpreted by: MICHAEL SANDOVAL MD Electronically signed by: Departure Impression Primary Impression: Chest pain Additional Impression: Urinary tract infection Disposition: HOME, SELF-CARE Condition: Stable Departure-Patient Inst. Decision time for Depature: 12:03 Referrals: ANUEL POP APRN (PCP) Primary Care Physician OK PARIKH DO (Family) Primary Care Physician Patient Instructions: Chest Pain That Is Not Caused by the Heart (DC), Urinary Tract Infection, Adult (DC) Add. Discharge Instructions: 1. Return to ER for any concerns 2. Follow-up with your doctor next week 3. antibiotics as directed. Scripts Naproxen (Naprosyn) 500 Mg Tablet 500 MG PO BID PRN for PAIN-MILD TO MODERATE, #20 TAB Prov: LALO COOPER APRN 10/15/17 Nitrofurantoin Monohyd/M-Cryst (Macrobid 100 mg Capsule) 100 Mg Capsule 1 TAB PO BID, #14 CAP Prov: LALO COOPER APRN 10/15/17 LALO COOPER APRN October 15, 2017 10:38
[2017-10-15 10:39] LABS: BASOPHILS % (AUTO) 0 % (0-10); EOSINOPHILS # (AUTO) 0.1 10^3/uL (0.0-0.3); EOSINOPHILS % (AUTO) 1 % (0-10); HEMATOCRIT 35 % (35-52); HEMOGLOBIN 12.7 G/DL (11.5-16.0); LYMPHOCYTES # (AUTO) 0.9 X 10^3 (1.0-4.0); LYMPHOCYTES % (AUTO) 9 % (12-44); MEAN CORPUSCULAR HEMOGLOBIN 31 PG (25-34); MEAN CORPUSCULAR HGB CONC 36 G/DL (32-36); MEAN CORPUSCULAR VOLUME 87 FL (80-99); MEAN PLATELET VOLUME 9.7 FL (7.4-10.4); MONOCYTES # (AUTO) 0.6 X 10^3 (0.0-1.0); MONOCYTES % (AUTO) 6 % (0-12); NEUTROPHILS # (AUTO) 7.8 X 10^3 (1.8-7.8); NEUTROPHILS % (AUTO) 83 % (42-75); PLATELET COUNT 164 10^3/uL (130-400); RED BLOOD COUNT 4.05 10^6/uL (4.35-5.85); RED CELL DISTRIBUTION WIDTH 12.9 % (10.0-14.5); WHITE BLOOD COUNT 9.3 10^3/uL (4.3-11.0)
[2017-10-15] MEDS: ONDANSETRON 4 MG/2 ML (SDV) Z0FRAN IVP ONE (10:47)
[2017-10-15] MEDS: LIDOCAINE 2% VISCOUS 15 ML UDC PO ONE (10:48)
[2017-10-15] MEDS: ASPIRIN 81 MG CHEW (CHILDREN'S ASA) PO ONE (10:48)
[2017-10-15] MEDS: ANTACID SUSP 30 ML UDC (MYLANTA) PO ONE (10:48)
[2017-10-15 10:51] LABS: INR 1.1 (0.8-1.4); PROTHROMBIN TIME PATIENT 13.9 SEC (12.2-14.7)
--- NOTE | 2017-10-15 10:53 | Diagnostic Imaging Report ---
INDICATION: Chest pain. Time of exam: 10:45 AM Comparison is made with prior chest from 03/19/2017. Left chest wall port has tip overlying the SVC. Lungs are clear. The pulmonary vascularity is normal. No infiltrate, effusion or pneumothorax is seen. IMPRESSION: No acute cardiopulmonary process is detected. Dictated by: Dictated on workstation # [id number]
[2017-10-15 10:59] LABS: ALANINE AMINOTRANSFERASE 21 U/L (0-55); ALBUMIN 3.6 GM/DL (3.2-4.5); ALKALINE PHOSPHATASE 44 U/L (40-136); BILIRUBIN,TOTAL 1.1 MG/DL (0.1-1.0); BUN/CREATININE RATIO 23; CALCIUM 8.7 MG/DL (8.5-10.1); CARBON DIOXIDE 24 MMOL/L (21-32); CHLORIDE 110 MMOL/L (98-107); CREATININE SERUM 0.62 MG/DL (0.60-1.30); GFR ESTIMATED > 60; GLUCOSE 91 MG/DL (70-105); MAGNESIUM 1.6 MG/DL (1.8-2.4); POTASSIUM 3.5 MMOL/L (3.6-5.0); SODIUM 141 MMOL/L (135-145); TOTAL PROTEIN 5.8 GM/DL (6.4-8.2)
[2017-10-15 11:07] LABS: MYOGLOBIN SERUM 17.7 NG/ML (10.0-92.0)
[2017-10-15 11:12] LABS: BILIRUBIN,URINE NEGATIVE (NEGATIVE); CLARITY,URINE CLEAR; COLOR,URINE YELLOW; GLUCOSE, URINE (UA) NEGATIVE (NEGATIVE); KETONES,URINE NEGATIVE (NEGATIVE); LEUKOCYTE ESTERASE ,URINE 2+ (NEGATIVE); NITRITE,URINE NEGATIVE (NEGATIVE); PH,URINE 6 (5-9); PROTEIN,URINE NEGATIVE (NEGATIVE); UROBILINOGEN,URINE 1 MG/DL (NORMAL)
[2017-10-15 11:23] LABS: BACTERIA,URINE TRACE /HPF
[2017-10-15 11:30] LABS: AMPHETAMINE SCREEN, URINE NEGATIVE (NEGATIVE); BARBITURATE SCREEN URINE NEGATIVE (NEGATIVE); BENZODIAZEPINES SCREEN URINE NEGATIVE (NEGATIVE); CANNABINOID SCREEN, URINE NEGATIVE (NEGATIVE); COCAINE SCREEN URINE NEGATIVE (NEGATIVE); METHADONE STAT NEGATIVE (NEGATIVE); METHAMPHETAMINE SCREEN URINE S NEGATIVE (NEGATIVE); OPIATE SCREEN URINE NEGATIVE (NEGATIVE); OXYCODONE STAT NEGATIVE (NEGATIVE); PROPOXYPHENE STAT NEGATIVE (NEGATIVE); TRICYCLIC ANTIDEPRESSANTS SCRE NEGATIVE (NEGATIVE)
[2017-10-15] MEDS: HYDROcodone/APAP 5 MG/325 MG (LORTAB) TAB PO ONE (11:54)
[2017-10-15] MEDS ORDERED: NAPR-1071 PO (12:05)
[2017-10-15] MEDS ORDERED: NITR-65 PO (12:05)
[2017-10-15 12:13] VITALS: BP 127/89
== END 2017-10-15 12:13 | disposition home or self-care (01) ==
LOC: EDUNIT# 10:08 → ER 10:10
DX: R07.89 Other chest pain (principal); N39.0 Urinary tract infection, site not specified; J45.909 Unspecified asthma, uncomplicated; M06.9 Rheumatoid arthritis, unspecified; F17.210 Nicotine dependence, cigarettes, uncomplicated; Z90.89 Acquired absence of other organs; Z87.19 Personal history of other diseases of the digestive system; Z88.0 Allergy status to penicillin; Z88.2 Allergy status to sulfonamides
CPT/HCPCS: 36415; 71045; 80053; 80306; 81000; 83690; 83735; 83874; 84484; 84703; 85025; 85610; 85730; 87077; 87088; 93005; 93041; 96374